=== PATIENT | female | born 1960 | race Caucasian/White ===

== ENCOUNTER 2018-07-30 17:57 | Observation (INO) | payer OTHER ==
[~2018-07-30] VITALS: Ht 167.6 cm; Wt 73.0 kg
[~2018-07-30 17:57] MED LIST: ARIP10 PO; ARIP30 PO; BISA10S PR; CARB200 PO; CIPR500 PO; CLIN300 PO; CVS DISPOSABLE399 ML PR; DEPAKOTE; DOCU100 PO; ENOX40I SC; ESCI10 PO; HYDPAM25 PO; HYDPAM50 PO; HYDR1TAB94 PO; IBUP800 PO; LEVSOD50 PO; LITH300C; LITH300C PO; LITH300ER PO; LORA.5 PO; LORA1 PO; MULVIT PO; Milk Of Ma400 MG/5 M PO; NICO14TP TOP; OLAN10 PO; OXYBSY; QUET200 PO; RISP4; RISP4 PO; RISPERIDONE; SENNA PLUS; Senexon8.6 MG PO; TEMA15 PO; THIO PO; TOPI100 PO; TRAZ100; TRAZ100 PO; TRAZ150T57 PO; TRAZEDONE; depakote
[2018-07-30] MEDS ORDERED: PRAZ2 PO (18:32)
[2018-07-30] MEDS ORDERED: FISH OIL 1,0001 EACH PO (18:33)
[2018-07-30 19:28] LABS: Source, Urine Voided
[2018-07-30 19:37] LABS: Appearance, Urine Clear (Clear); Bilirubin, Urine Neg (Neg); Blood, Urine Neg (Neg); Color, Urine Yellow (P-Yellow); Glucose Qualitative, Urine Neg (Neg); Ketones, Urine Neg (Neg); Leukocyte Esterase, Urine 1+ (Neg); Nitrite, Urine Neg (Neg); Protein, Urine Neg (Neg); Specific Gravity, Urine 1.005 (1.003-1.022); Urobilinogen, Urine NORM (Normal)
[2018-07-30 19:44] LABS: BASOPHILS ABSOLUTE AUTO 0.07 K/mm3 (0.00-0.23); BASOPHILS PERCENT AUTO 1 % (0-2); EOSINOPHILS ABSOLUTE AUTO 0.27 K/mm3 (0.00-0.68); EOSINOPHILS PERCENT AUTO 2 % (0-6); Hematocrit 47.7 % (33.0-51.0); Hemoglobin 16.3 g/dL (11.5-16.0); IMMATURE GRAN ABSOLUTE AUTO 0.04 K/mm3 (0.00-0.10); IMMATURE GRAN PERCENT AUTO 0 % (0-1); LYMPHOCYTES ABSOLUTE AUTO 6.63 K/mm3 (0.84-5.20); LYMPHOCYTES PERCENT AUTO 51 % (21-46); MONOCYTES ABSOLUTE AUTO 0.83 K/mm3 (0.16-1.47); MONOCYTES PERCENT AUTO 6 % (4-13); Mean Corpuscular HGB Conc 34.2 g/dL (31.5-36.5); Mean Corpuscular Volume 97 fL (80-100); NEUTROPHILS ABSOLUTE AUTO 5.27 K/mm3 (1.96-9.15); NEUTROPHILS PERCENT AUTO 40 % (41-73); RDW Coefficient Variation 12.8 % (11.7-14.2); RDW Standard Deviation 45.6 fL (35.1-46.3); Red Blood Cell Count 4.94 M/mm3 (3.80-5.20); White Blood Cell Count 13.11 K/mm3 (4.00-11.30)
[2018-07-30 19:51] LABS: Alanine Aminotransfer (ALT/SGP 44 U/L (12-78); Albumin, Blood 3.8 g/dL (3.4-5.0); Alk Phos 101 U/L (50-136); Anion Gap 9 mmol/L (6-16); Aspartate Aminotrans (AST/SGOT 20 U/L (12-37); Bilirubin, Total 0.3 mg/dL (0.1-1.0); Blood Urea Nitrogen 19 mg/dL (8-24); Bun/Creatinine Ratio 19.9 (12.0-20.0); CO2, Blood 18 mmol/L (21-32); Calcium, Blood 8.8 mg/dL (8.5-10.1); Chloride, Blood 111 mmol/L (98-108); Creatinine, Blood 0.96 mg/dL (0.40-1.00); Ethanol (Alcohol), Blood, Med <3 mg/dL; Glomerular Filtration Rate >60 (60-); Glucose, Blood 112 mg/dL (70-99); Potassium, Blood 4.1 mmol/L (3.5-5.5); Salicylate <1.7 mg/dL (2.8-20.0); Sodium, Blood 138 mmol/L (136-145); Total Protein, Blood 7.8 g/dL (6.4-8.2)
[2018-07-30 19:52] LABS: Mean Platelet Volume 10.3 fL (9.1-12.4); Platelet Count 184 K/mm3 (150-400)
[2018-07-30 19:57] LABS: Squamous Epithelial Cells Rare /hpf (Few)
[2018-07-30 19:58] LABS: Bacteria Rare /hpf; Red Blood Cells, Urine Not Seen /hpf (0-2); White Blood Cells, Urine 0-2 /hpf (0-5)
[2018-07-30 19:59] LABS: U Amphetamine Screen Not Detected; U Barbituate Screen Not Detected; U Benzodiazapine Screen Not Detected; U Buprenorphine Screen Not Detected; U Cannabinoids Screen Not Detected; U Cocaine Screen Not Detected; U Methadone Screen Not Detected; U Methamphetamine Screen Not Detected; U Opiates Screen Not Detected; U Oxycodone Screen Not Detected; U Phencyclidine Screen Not Detected; U Propoxyphene Screen Not Detected
[2018-07-30 19:59] LABS: Acetaminophen, Random <2.0 ug/mL (10.0-30.0)
[2018-07-30 20:09] LABS: Lithium 0.61 mmol/L (0.60-1.20)
== END 2018-08-01 08:16 ==
LOC: ER 17:57 → EOR 17:58
PROVIDERS: Physician Assistant
DX: R45.851 Suicidal ideations (principal); F31.4 Bipolar disorder, current episode depressed, severe, without psychotic features; F43.10 Post-traumatic stress disorder, unspecified; F20.9 Schizophrenia, unspecified; F17.200 Nicotine dependence, unspecified, uncomplicated; Z79.899 Other long term (current) drug therapy
CPT/HCPCS: 36415; 80053; 80178; 81001; 81025; 84443; 85025; 87086; 99285; G0378; G0480; Q3014

== ENCOUNTER 2018-10-26 23:35 | Emergency (ER) | payer OTHER ==
[~2018-10-26] VITALS: Ht 170.2 cm; Wt 77.1 kg
[~2018-10-26 23:35] MED LIST changes: +FISH OIL 1,0001 EACH PO; +PRAZ2 PO
[2018-10-27] MEDS ORDERED: BENZ2 PO (01:06)
== END 2018-10-27 01:58 | disposition home or self-care (01) ==
LOC: ER 23:35
DX: G25.81 Restless legs syndrome (principal); T43.595A Adverse effect of other antipsychotics and neuroleptics, initial encounter; Z88.0 Allergy status to penicillin; Z88.8 Allergy status to other drugs, medicaments and biological substances; Z88.5 Allergy status to narcotic agent; Z79.899 Other long term (current) drug therapy; F31.9 Bipolar disorder, unspecified; F20.9 Schizophrenia, unspecified; F17.200 Nicotine dependence, unspecified, uncomplicated
CPT/HCPCS: 96374; 99283-25; J0515

== ENCOUNTER 2018-11-03 19:07 | Emergency (ER) | payer OTHER ==
[~2018-11-03] VITALS: Ht 170.2 cm; Wt 77.1 kg
[~2018-11-03 19:07] MED LIST changes: +BENZ2 PO
== END 2018-11-03 19:17 | disposition home or self-care (01) ==
LOC: ER 19:07
DX: R21 Rash and other nonspecific skin eruption (principal); Z88.0 Allergy status to penicillin; Z88.8 Allergy status to other drugs, medicaments and biological substances; Z88.5 Allergy status to narcotic agent; Z79.899 Other long term (current) drug therapy; F32.9 Major depressive disorder, single episode, unspecified; F31.9 Bipolar disorder, unspecified; F20.9 Schizophrenia, unspecified; F17.200 Nicotine dependence, unspecified, uncomplicated
CPT/HCPCS: 99283

== ENCOUNTER 2019-05-10 20:40 | Emergency (ER) | payer OTHER ==
[~2019-05-10] VITALS: Ht 170.2 cm; Wt 68.0 kg
[2019-05-10 21:05] LABS: BASOPHILS ABSOLUTE AUTO 0.05 K/mm3 (0.00-0.23); BASOPHILS PERCENT AUTO 1 % (0-2); EOSINOPHILS ABSOLUTE AUTO 0.28 K/mm3 (0.00-0.68); EOSINOPHILS PERCENT AUTO 3 % (0-6); Hematocrit 39.4 % (33.0-51.0); Hemoglobin 13.4 g/dL (11.5-16.0); IMMATURE GRAN ABSOLUTE AUTO 0.02 K/mm3 (0.00-0.10); IMMATURE GRAN PERCENT AUTO 0 % (0-1); LYMPHOCYTES ABSOLUTE AUTO 5.69 K/mm3 (0.84-5.20); LYMPHOCYTES PERCENT AUTO 56 % (21-46); MONOCYTES ABSOLUTE AUTO 0.59 K/mm3 (0.16-1.47); MONOCYTES PERCENT AUTO 6 % (4-13); Mean Corpuscular Volume 100 fL (80-100); Mean Platelet Volume 8.8 fL (9.1-12.4); NEUTROPHILS ABSOLUTE AUTO 3.46 K/mm3 (1.96-9.15); NEUTROPHILS PERCENT AUTO 34 % (41-73); Platelet Count 197 K/mm3 (150-400); RDW Coefficient Variation 13.2 % (11.7-14.2); RDW Standard Deviation 48.8 fL (35.1-46.3); Red Blood Cell Count 3.94 M/mm3 (3.80-5.20); White Blood Cell Count 10.09 K/mm3 (4.00-11.30)
[2019-05-10 21:21] LABS: CPK Creatine Kinase 139 U/L (26-193); Troponin I <0.015 ng/mL (0.000-0.040)
[2019-05-10 21:22] LABS: Alanine Aminotransfer (ALT/SGP 37 U/L (12-78); Albumin, Blood 3.4 g/dL (3.4-5.0); Alk Phos 71 U/L (50-136); Anion Gap 8 mmol/L (6-16); Aspartate Aminotrans (AST/SGOT 29 U/L (12-37); Bilirubin, Total 0.5 mg/dL (0.1-1.0); Blood Urea Nitrogen 11 mg/dL (8-24); Bun/Creatinine Ratio 12.5 (12.0-20.0); CO2, Blood 23 mmol/L (21-32); Calcium, Blood 8.9 mg/dL (8.5-10.1); Chloride, Blood 112 mmol/L (98-108); Creatine Kinase MB 7.3 ng/mL (0.0-3.6); Creatine Kinase MB Index 5.3 (0.0-4.0); Creatinine, Blood 0.88 mg/dL (0.40-1.00); Globulin, Blood 3.4 g/dL (2.2-4.0); Glomerular Filtration Rate >60 (60-); Glucose, Blood 102 mg/dL (70-99); Potassium, Blood 3.8 mmol/L (3.5-5.5); Sodium, Blood 143 mmol/L (136-145); Total Protein, Blood 6.8 g/dL (6.4-8.2)
[2019-05-10 21:42] LABS: Lithium 0.84 mmol/L (0.60-1.20)
[2019-05-10] MEDS ORDERED: ALBU90OI INH (21:58)
== END 2019-05-10 22:12 | disposition home or self-care (01) ==
LOC: ER 20:40
PROVIDERS: Emergency Medicine
DX: R07.89 Other chest pain (principal); F31.9 Bipolar disorder, unspecified; F20.9 Schizophrenia, unspecified; F17.210 Nicotine dependence, cigarettes, uncomplicated; Z86.73 Personal history of transient ischemic attack (TIA), and cerebral infarction without residual deficits; Z88.0 Allergy status to penicillin; Z88.8 Allergy status to other drugs, medicaments and biological substances; Z88.5 Allergy status to narcotic agent; Z79.899 Other long term (current) drug therapy
CPT/HCPCS: 71046; 80053; 80178; 82550; 82553; 83690; 83880; 84484; 85025; 93005; 93010; 94640; 99285-25

== ENCOUNTER 2019-10-22 09:04 | Day surgery (SDC) | payer OTHER ==
[~2019-10-22] VITALS: Ht 170.2 cm; Wt 79.7 kg
[~2019-10-22 09:04] MED LIST changes: +ALBU90OI INH; +EUTHYROX88 MCG PO; +PRAZ1 PO; +PROP10 PO; +VENL150ER PO
== END 2019-10-22 11:44 | disposition home or self-care (01) ==
LOC: ORSCSDS 09:04
PROVIDERS: Internal Medicine Gastroenterology
PROC: 0DBE8ZX Excision of Large Intestine, Via Natural or Artificial Opening Endoscopic, Diagnostic (ICD-10-PCS; principal; 2019-10-22 10:15)
PROC: 0DBP8ZX Excision of Rectum, Via Natural or Artificial Opening Endoscopic, Diagnostic (ICD-10-PCS; principal; 2019-10-22 10:15)
PROC: 0DBM8ZX Excision of Descending Colon, Via Natural or Artificial Opening Endoscopic, Diagnostic (ICD-10-PCS; principal; 2019-10-22 10:15)
DX: R19.7 Diarrhea, unspecified (principal); D12.8 Benign neoplasm of rectum; D12.4 Benign neoplasm of descending colon; Z80.0 Family history of malignant neoplasm of digestive organs; K57.30 Diverticulosis of large intestine without perforation or abscess without bleeding; Z87.891 Personal history of nicotine dependence
CPT/HCPCS: 88305; J2704; J7120

== ENCOUNTER 2020-02-04 15:05 | Emergency (ER) | payer OTHER ==
[~2020-02-04] VITALS: Ht 167.6 cm; Wt 68.0 kg
[2020-02-04 16:11] LABS: BASOPHILS ABSOLUTE AUTO 0.03 K/mm3 (0.00-0.23); BASOPHILS PERCENT AUTO 0 % (0-2); EOSINOPHILS ABSOLUTE AUTO 0.21 K/mm3 (0.00-0.68); EOSINOPHILS PERCENT AUTO 2 % (0-6); IMMATURE GRAN ABSOLUTE AUTO 0.03 K/mm3 (0.00-0.10); IMMATURE GRAN PERCENT AUTO 0 % (0-1); LYMPHOCYTES ABSOLUTE AUTO 3.28 K/mm3 (0.84-5.20); LYMPHOCYTES PERCENT AUTO 31 % (21-46); MONOCYTES ABSOLUTE AUTO 0.56 K/mm3 (0.16-1.47); MONOCYTES PERCENT AUTO 5 % (4-13); Mean Corpuscular HGB 32.5 pg (26.0-34.0); Mean Corpuscular Volume 96 fL (80-100); Mean Platelet Volume 9.3 fL (9.1-12.4); NEUTROPHILS ABSOLUTE AUTO 6.48 K/mm3 (1.96-9.15); NEUTROPHILS PERCENT AUTO 61 % (41-73); Platelet Count 233 K/mm3 (150-400); RDW Coefficient Variation 12.9 % (11.7-14.2); RDW Standard Deviation 45.7 fL (35.1-46.3); Red Blood Cell Count 4.92 M/mm3 (3.80-5.20); White Blood Cell Count 10.59 K/mm3 (4.00-11.30)
[2020-02-04 16:30] LABS: Lithium 1.37 mmol/L (0.60-1.20)
[2020-02-04 16:44] LABS: Alanine Aminotransfer (ALT/SGP 29 U/L (12-78); Albumin, Blood 3.7 g/dL (3.4-5.0); Albumin/Globulin Ratio 0.9 (0.8-1.8); Alk Phos 89 U/L (50-136); Anion Gap 9 mmol/L (6-16); Aspartate Aminotrans (AST/SGOT 21 U/L (12-37); Bilirubin, Total 0.5 mg/dL (0.1-1.0); Blood Urea Nitrogen 8 mg/dL (8-24); Bun/Creatinine Ratio 9.4 (12.0-20.0); CO2, Blood 22 mmol/L (21-32); Calcium, Blood 9.7 mg/dL (8.5-10.1); Chloride, Blood 105 mmol/L (98-108); Creatinine, Blood 0.85 mg/dL (0.40-1.00); Ethanol (Alcohol), Blood, Med <3 mg/dL; Glomerular Filtration Rate >60 (60-); Glucose, Blood 106 mg/dL (70-99); Potassium, Blood 3.4 mmol/L (3.5-5.5); Salicylate 3.5 mg/dL (2.8-20.0); Sodium, Blood 136 mmol/L (136-145); Total Protein, Blood 7.7 g/dL (6.4-8.2)
[2020-02-04 16:46] LABS: Acetaminophen, Random <2.0 ug/mL (10.0-30.0)
[2020-02-04 16:53] LABS: Free Thyroxine 1.53 ng/dL (0.70-1.60)
[2020-02-04 19:19] LABS: Lithium 1.29 mmol/L (0.60-1.20)
== END 2020-02-04 20:32 | disposition home or self-care (01) ==
LOC: ER 15:05
PROVIDERS: Emergency Medicine; Nurse Practitioner
DX: F15.10 Other stimulant abuse, uncomplicated (principal); F12.10 Cannabis abuse, uncomplicated; F31.9 Bipolar disorder, unspecified; F20.9 Schizophrenia, unspecified; F17.210 Nicotine dependence, cigarettes, uncomplicated; Z88.0 Allergy status to penicillin; Z88.5 Allergy status to narcotic agent; Z88.8 Allergy status to other drugs, medicaments and biological substances; Z79.899 Other long term (current) drug therapy; Z86.19 Personal history of other infectious and parasitic diseases
CPT/HCPCS: 36415; 80053; 80178; 84439; 84443; 85025; 99283; G0480

== ENCOUNTER 2020-03-13 01:42 | Emergency (ER) | payer OTHER ==
[~2020-03-13] VITALS: Ht 172.7 cm; Wt 71.2 kg
== END 2020-03-13 03:46 | disposition home or self-care (01) ==
LOC: ER 01:42
DX: S80.02XA Contusion of left knee, initial encounter (principal); S50.311A Abrasion of right elbow, initial encounter; Z88.0 Allergy status to penicillin; Z88.5 Allergy status to narcotic agent; Z88.8 Allergy status to other drugs, medicaments and biological substances; Z91.018 Allergy to other foods; Z79.899 Other long term (current) drug therapy; F31.9 Bipolar disorder, unspecified; F20.9 Schizophrenia, unspecified; Z86.19 Personal history of other infectious and parasitic diseases; F17.210 Nicotine dependence, cigarettes, uncomplicated; W18.30XA Fall on same level, unspecified, initial encounter
CPT/HCPCS: 73562-LT; 99283-25

== ENCOUNTER 2020-05-04 09:24 | Observation (INO) | payer OTHER ==
[~2020-05-04] VITALS: Ht 170.2 cm; Wt 63.3 kg
[~2020-05-04 09:24] MED LIST changes: +DOCUZEN 8.6-501 EACH PO; -FISH OIL 1,0001 EACH PO; +FISH OIL 1,2001 EAC7 PO; -Senexon8.6 MG PO; -VENL150ER PO; +VENL75ER PO
[2020-05-04] MEDS ORDERED: Vistaril25 MG PO (10:33)
[2020-05-04] MEDS ORDERED: TRAZ50 PO (10:34)
[2020-05-04] MEDS ORDERED: OLAN10A MM (10:41)
[2020-05-04 11:11] LABS: Source, Urine Clean Catch
[2020-05-04 11:26] LABS: Appearance, Urine Clear (Clear); Blood, Urine Neg (Neg); Color, Urine Yellow (P-Yellow); Glucose Qualitative, Urine Neg (Neg); Ketones, Urine 4+ (Neg); Leukocyte Esterase, Urine Neg (Neg); Nitrite, Urine Neg (Neg); Protein, Urine 1+ (Neg); Urobilinogen, Urine 1+ (Normal)
[2020-05-04] MEDS ORDERED: Lithium Carbon300 M2 PO (11:39)
[2020-05-04] MEDS ORDERED: OLANZAPINE10 M2 PO (11:40)
[2020-05-04 11:43] LABS: BASOPHILS ABSOLUTE AUTO 0.03 K/mm3 (0.00-0.23); BASOPHILS PERCENT AUTO 0 % (0-2); EOSINOPHILS ABSOLUTE AUTO 0.02 K/mm3 (0.00-0.68); EOSINOPHILS PERCENT AUTO 0 % (0-6); Hematocrit 43.8 % (33.0-51.0); Hemoglobin 14.5 g/dL (11.5-16.0); IMMATURE GRAN ABSOLUTE AUTO 0.01 K/mm3 (0.00-0.10); IMMATURE GRAN PERCENT AUTO 0 % (0-1); LYMPHOCYTES ABSOLUTE AUTO 2.84 K/mm3 (0.84-5.20); LYMPHOCYTES PERCENT AUTO 35 % (21-46); MONOCYTES ABSOLUTE AUTO 0.39 K/mm3 (0.16-1.47); MONOCYTES PERCENT AUTO 5 % (4-13); Mean Corpuscular HGB 32.9 pg (26.0-34.0); Mean Corpuscular HGB Conc 33.1 g/dL (31.5-36.5); Mean Corpuscular Volume 99 fL (80-100); Mean Platelet Volume 9.2 fL (9.1-12.4); NEUTROPHILS ABSOLUTE AUTO 4.86 K/mm3 (1.96-9.15); NEUTROPHILS PERCENT AUTO 60 % (41-73); Platelet Count 210 K/mm3 (150-400); RDW Coefficient Variation 12.7 % (11.7-14.2); RDW Standard Deviation 47.1 fL (35.1-46.3); Red Blood Cell Count 4.41 M/mm3 (3.80-5.20); White Blood Cell Count 8.15 K/mm3 (4.00-11.30)
[2020-05-04 11:45] LABS: Bilirubin, Urine 1+ (Neg)
[2020-05-04 11:47] LABS: U Amphetamine Screen Not Detected; U Barbituate Screen Not Detected; U Benzodiazapine Screen Not Detected; U Buprenorphine Screen Not Detected; U Cannabinoids Screen DETECTED; U Cocaine Screen Not Detected; U Methadone Screen Not Detected; U Methamphetamine Screen Not Detected; U Opiates Screen Not Detected; U Oxycodone Screen Not Detected; U Phencyclidine Screen Not Detected; U Propoxyphene Screen Not Detected
[2020-05-04 12:04] LABS: Alanine Aminotransfer (ALT/SGP 45 U/L (12-78); Albumin, Blood 4.2 g/dL (3.4-5.0); Albumin/Globulin Ratio 1.3 (0.8-1.8); Alk Phos 70 U/L (50-136); Anion Gap 10 mmol/L (6-16); Aspartate Aminotrans (AST/SGOT 29 U/L (12-37); Bilirubin, Total 0.5 mg/dL (0.1-1.0); Blood Urea Nitrogen 25 mg/dL (8-24); Bun/Creatinine Ratio 23.1 (12.0-20.0); CO2, Blood 20 mmol/L (21-32); Calcium, Blood 9.8 mg/dL (8.5-10.1); Chloride, Blood 114 mmol/L (98-108); Creatinine, Blood 1.08 mg/dL (0.40-1.00); Ethanol (Alcohol), Blood, Med 4 mg/dL; Globulin, Blood 3.3 g/dL (2.2-4.0); Glomerular Filtration Rate 55 (60-); Glucose, Blood 88 mg/dL (70-99); Potassium, Blood 4.3 mmol/L (3.5-5.5); Salicylate 3.9 mg/dL (2.8-20.0); Sodium, Blood 144 mmol/L (136-145); Total Protein, Blood 7.5 g/dL (6.4-8.2)
[2020-05-04 12:06] LABS: Acetaminophen, Random <2.0 ug/mL (10.0-30.0)
[2020-05-04 17:27] LABS: Lithium 0.27 mmol/L (0.60-1.20)
[2020-05-05 16:21] LABS: BASOPHILS ABSOLUTE AUTO 0.03 K/mm3 (0.00-0.23); BASOPHILS PERCENT AUTO 0 % (0-2); EOSINOPHILS ABSOLUTE AUTO 0.17 K/mm3 (0.00-0.68); EOSINOPHILS PERCENT AUTO 2 % (0-6); Hematocrit 44.6 % (33.0-51.0); Hemoglobin 14.9 g/dL (11.5-16.0); IMMATURE GRAN ABSOLUTE AUTO 0.03 K/mm3 (0.00-0.10); IMMATURE GRAN PERCENT AUTO 0 % (0-1); LYMPHOCYTES ABSOLUTE AUTO 4.09 K/mm3 (0.84-5.20); LYMPHOCYTES PERCENT AUTO 38 % (21-46); MONOCYTES ABSOLUTE AUTO 0.68 K/mm3 (0.16-1.47); MONOCYTES PERCENT AUTO 6 % (4-13); Mean Corpuscular HGB 32.8 pg (26.0-34.0); Mean Corpuscular HGB Conc 33.4 g/dL (31.5-36.5); Mean Corpuscular Volume 98 fL (80-100); Mean Platelet Volume 9.2 fL (9.1-12.4); NEUTROPHILS ABSOLUTE AUTO 5.68 K/mm3 (1.96-9.15); NEUTROPHILS PERCENT AUTO 53 % (41-73); Platelet Count 187 K/mm3 (150-400); RDW Coefficient Variation 12.5 % (11.7-14.2); RDW Standard Deviation 45.1 fL (35.1-46.3); Red Blood Cell Count 4.54 M/mm3 (3.80-5.20); White Blood Cell Count 10.68 K/mm3 (4.00-11.30)
[2020-05-05 16:39] LABS: Alanine Aminotransfer (ALT/SGP 45 U/L (12-78); Albumin, Blood 3.9 g/dL (3.4-5.0); Albumin/Globulin Ratio 1.2 (0.8-1.8); Alk Phos 71 U/L (50-136); Anion Gap 6 mmol/L (6-16); Aspartate Aminotrans (AST/SGOT 33 U/L (12-37); Bilirubin, Total 0.4 mg/dL (0.1-1.0); Blood Urea Nitrogen 24 mg/dL (8-24); Bun/Creatinine Ratio 24.1 (12.0-20.0); CO2, Blood 25 mmol/L (21-32); Calcium, Blood 9.5 mg/dL (8.5-10.1); Chloride, Blood 110 mmol/L (98-108); Ethanol (Alcohol), Blood, Med <3 mg/dL; Globulin, Blood 3.2 g/dL (2.2-4.0); Glomerular Filtration Rate >60 (60-); Glucose, Blood 103 mg/dL (70-99); Potassium, Blood 3.9 mmol/L (3.5-5.5); Sodium, Blood 141 mmol/L (136-145); Total Protein, Blood 7.1 g/dL (6.4-8.2)
--- NOTE | 2020-05-06 00:05 | NUR ---
COLUMBIA SUICIDE ASSESSMENT: UNABLE TO COMPLE DUE TO PATIENT'S CONFUSION AND INABILITY TO ANSWER QUESTIONS.
--- NOTE | 2020-05-06 00:05 | NUR ---
RECEIVED PATIENT FROM CRISIS HOLD UNIT VIA WHEELCHAIR WITH SECURITY AND RN. PATIENT LIFTED TO BED BY SECURITY. PATIENT ORIENTED ONLY TO NAME; SPEECH GARBLED AND UNINTELLIGIBLE. PATIENT APPEARS CALM, FOLLOWS DIRECTIONS. VITALS TAKEN. BED ALARM ON; ROOM CAMERA ON.
--- NOTE | 2020-05-06 02:00 | NUR ---
PATIENT SLEEPING. BED ALARM ON. PATIENT ON VIDEO MONITOR.
--- NOTE | 2020-05-06 04:00 | NUR ---
PATIENT AWAKE, FIDGETING IN BED. PATIENT ASKED IF SHE NEEDED TO VOID, PATIENT NODDED YES. PATIENT PLACED ON BEDPAN; UNABLE TO VOID. PATIENT AWAKE; UNABLE TO UNDERSTAND GARBLED WORDS. PATIENT FED YOGURT; ATE FULL CONTAINER. ATTEMPTED TO REORIENT PATIENT. PATIENT FOLLOWS SIMPLE DIRECTIONS, BUT UNABLE TO ASSESS ORIENTATION DUE TO GARBLED AND UNINTELLIGIBLE SPEECH. BED IN LOW POSITION, WHEELS LOCKED; BED ALARM ON; PATIENT ON VIDEO MONITORING.
--- NOTE | 2020-05-06 06:25 | NUR ---
SHIFT SUMMARY: PATIENT SLEPT OFF AND ON SINCE ADMISSION. PATIENT'S SPEECH THIS AM A LITTLE MORE CLEAR, BUT PATIENT IS DISORIENTED AND WORDS ARE NON-SENSICAL. PATIENT TRIED TO CLIMB OUT OF BED ONCE, BUT WAS EASILY REDIRECTED TO GET BACK IN BED. PATIENT REMAINS ON ETOH HOLD WITH VIDEO MONITORING. BED LOW WITH SIDERAILS UP AND BED EXIT ALARM ON. PATIENT ABLE TO FEED HERSELF TWO YOGURTS THIS AM.
--- NOTE | 2020-05-06 07:44 | NUR ---
Assumed care of pt at 0700. Bedside report received from Tiffany NOLEN. Pt alert. Knows own name. Does not know current location. Pt highly interactive with staff. Speaking in friendly tone, changing between subjects quickly. Pt inquires "am I getting counseling today?" This RN notified pt that psych doctor will be in to see her later. Pt mentions Dr Brand's name. Pt laying in bed, follows commands and answers questions. Pt on room air. No cardiac monitoring. No IV access. Pt is medical floor status, no telemetry ordered. Bed alarm on.
[2020-05-06 08:46] LABS: Lithium 0.84 mmol/L (0.60-1.20)
--- NOTE | 2020-05-06 11:54 | NUR ---
Pt independent in room. Steady on feet. Dr Bhardwaj and Dr Natarajan have been in to see pt. Drug and alcohol hold , pt has been placed on 2 MD hold. Discussed that pt is medical status. manager emergency department notified that pt is medically stable.
--- NOTE | 2020-05-06 16:22 | NUR ---
Dr Barberuff in to see pt. States he is increasing pt's bedtime zyprexa. Goal for inpatient rehab when pt is medically stable.
--- NOTE | 2020-05-06 17:32 | NUR ---
No acute changes since initial assessment. Pt has been independent in room, tolerating activity well. Pt oriented to self, confused, has flight of ideas as well as auditory and visual hallucinations. Pt remains cooperative with care. Pt on room air. Not on ekg monitor tech. Remains on video monitoring. Will continue to closely monitor until care handoff and bedside report with oncoming RN.
--- NOTE | 2020-05-06 19:00 | NUR ---
ASSUMED CARE OF PATIENT. PATIENT ORIENTED TO PERSON, AND TIME; STATES SHE IS IN [place]. PATIENT HAVING AUDITORY HALLUCINATIONS; STATES "THE MAN NEXT DOOR IS YELLING THAT HE IS GOING TO KILL ME!" PATIENT COOPERATIVE AND DIRECTABLE. PATIENT REMAINS ON 2 MD HOLD ON VIDEO CAMERA.
--- NOTE | 2020-05-07 04:00 | NUR ---
PATIENT AWAKE, TALKING TO HERSELF. WHEN THIS RN ENTERED THE ROOM, PATIENT STATES "I'M NOT TAKING ANY OF YOUR MEDS." PATIENT ORIENTED TO PERSON, AND [place]. PATIENT STATES "I HAVE THE COVID BECAUSE THERE ARE SNAKES COMING OUT OF MY BUTT." PATIENT HAVING AUDITORY HALLUCINATIONS, SAYING "THE MAN NEXT DOOR SAYS HE IS GOING TO HURT ME." ATTEMPTED TO REORIENT PATIENT; PATIENT BEGAN TALKING TO HERSELF. PATIENT ALLOWED VITALS TO BE TAKEN AND THEN ROLLED OVER IN BED.
--- NOTE | 2020-05-07 06:04 | NUR ---
SHIFT SUMMARY: PATIENT ASLEEP FROM AROUND [id number]. PATIENT ORIENTED TO PERSON, AND STATE OF [place]. PATIENT YELLING AT TIMES, HALLUCINATING. PATIENT REDIRECTABLE AND IS QUIET FOR SHORT PERIODS OF TIME. PATIENT ATE A YOGURT THIS MORNING; ABLE TO FEED HERSELF. PATIENT APPEARS SOMEWHAT ANXIOUS THIS AM; DECLINED PRN MEDS. THAT WERE OFFERED. PATIENT CONTINUES ON 2 MD HOLD WITH VIDEO MONITORING. AWAITING PSYCH. DISPO.
--- NOTE | 2020-05-07 12:00 | NUR ---
Pt became agitated and attempted to leave facility. Pt reminded that she is on a 2 MD hold and the police will be called if she departs from facility. Pt verbalized understanding and continued to state desire to leave. Safely escorted to entrance by cam RN and Farzad RN. Upon stepping outside, pt stated it was hot and she wanted to go back inside. Pt escorted back to room. Provided with lunch tray. Pt happy and willing to stay.
--- NOTE | 2020-05-07 12:49 | NUR ---
Assumed care of pt at 0700. Report received from Tiffany NOLEN. Pt alert, oriented to self only. Independent in room. Performs ADLs independently. Report auditory and visual hallucination. Reports ongoing suicidality. Pt on room air. No heart monitor as pt is medical floor status without cardiac monitoring ordered. Bed in lowest position. Call light in reach. Pt denies need at this time.
--- NOTE | 2020-05-07 14:50 | NUR ---
Pt to shower, tolerated activity well. Bathed self independently with supervision and verbal cues from this RN.
--- NOTE | 2020-05-07 18:13 | NUR ---
Plans for pt to transfer to [facility], with secure transport arriving at 2200. Per facility, report not to be called at this time, but instead on patient departure from facility. Since shower, pt has been fatigued and been in bed. Will continue to closely monitor until care handoff and bedside report with oncoming RN.
--- NOTE | 2020-05-07 21:48 | NUR ---
ASSUMED CARE RECEIVED REPORT FROM TAMANNA BRUNNER. PT IS IN ROOM ALL OVER THE PLACE. OFTEN WILL BE PACING AROUND, THEN STARING CLOSELY AT THINGS NOT MOVING, TALKING TO SELF AND OBJECTS, SITTING DOWN IN CORNER, STUFFYING TOILET PAPER IN TOILET, CLOSING BLINDS, ETC... HER MOOD FLUCTUATES, SOMETIMES SHE IS SLIGHTLY AGITATED AND OTHER TIMES SHE IS VERY PLEASANT. EVEN WHEN SHE GETS A TAD AGITATED, SHE IS VERY REDIRECTABLE. WHEN SHE TRIES TO LEAVE, YOU CAN ASK HER TO GO BACK IN THE ROOM AND SHE DOES SO WITHOUT FIGHTING. HER ROOM HAS BEEN STRIPPED DOWN. I WAS ABLE TO GIVE HER MEDS TO HER AND SHE TOOK THEM WITHOUT ANY TROUBLE. SECURE TRANSPORT SHOULD BE HERE AT 2200 TO PICK HER UP AND TAKE HER TO [facility].
[2020-05-07] MEDS ORDERED: SENN187 PO (22:00)
--- NOTE | 2020-05-07 22:24 | NUR ---
SECURE TRANSPORT AMALIA MCCLURE IS HERE AT 2220 TO [facility] [employer] PT AND TAKE HER TO [facility] [place], [place]. I GAVE HIM THE APPROPRIATE PAPERWORK. PT IS CURRENTLY SLEEPY AND LAYING IN BED.
--- NOTE | 2020-05-07 22:28 | NUR ---
I ATTEMPTED TO CALL NORA'S SIGNIFICANT OTHER TO INFORM HIM OF HER TRANSFER, BUT HE DID NOT DIRECTOR FINANCIAL SERVICES THE PHONE CALL, AND I COULDN'T LEAVE HIM A MESSAGE BECAUSE HIS MAIL BOX WAS FULL.
== END 2020-05-07 22:30 ==
LOC: ER 09:24 → ICUW 09:26 → EOR 11:22 → ERHOLD 11:22 → ER 11:22 → ERHOLD 11:23 → EOR 11:23 → ICUW 05-05 11:23 → ER 05-05 11:23 → EOR 05-05 11:23 → ICUW 05-05 23:52 → EOR 05-05 23:52 → ICUW 05-06 00:02
PROVIDERS: Emergency Medicine; Psychiatry & Neurology Psychiatry; ADMIT Emergency Medicine
DX: F31.5 Bipolar disorder, current episode depressed, severe, with psychotic features (principal); G40.909 Epilepsy, unspecified, not intractable, without status epilepticus; I69.354 Hemiplegia and hemiparesis following cerebral infarction affecting left non-dominant side; F17.210 Nicotine dependence, cigarettes, uncomplicated; Z11.59 Encounter for screening for other viral diseases; Z88.5 Allergy status to narcotic agent; Z88.0 Allergy status to penicillin; Z88.8 Allergy status to other drugs, medicaments and biological substances; Z91.018 Allergy to other foods; Z79.899 Other long term (current) drug therapy
CPT/HCPCS: 36415; 70450; 71046; 80053; 80178; 81025; 84443; 85025; 93005; 93010; 96372; 99285-25; A9270-GY; G0378; G0480; J1650; Q0177; Q3014; U0002

== ENCOUNTER 2020-11-22 16:09 | Inpatient (IN) | payer OTHER ==
[~2020-11-22] VITALS: Ht 167.6 cm; Wt 65.8 kg
[~2020-11-22 16:09] MED LIST changes: +Lithium Carbon300 M2 PO; +OLAN10A MM; +SENN187 PO; +TRAZ50 PO
[2020-11-22 16:33] LABS: BASOPHILS ABSOLUTE AUTO 0.04 K/mm3 (0.00-0.23); BASOPHILS PERCENT AUTO 0 % (0-2); EOSINOPHILS PERCENT AUTO 0 % (0-6); Hemoglobin 19.7 g/dL (11.5-16.0); IMMATURE GRAN ABSOLUTE AUTO 0.06 K/mm3 (0.00-0.10); IMMATURE GRAN PERCENT AUTO 0 % (0-1); LYMPHOCYTES ABSOLUTE AUTO 4.27 K/mm3 (0.84-5.20); LYMPHOCYTES PERCENT AUTO 25 % (21-46); MONOCYTES ABSOLUTE AUTO 1.34 K/mm3 (0.16-1.47); MONOCYTES PERCENT AUTO 8 % (4-13); Mean Corpuscular HGB 33.1 pg (26.0-34.0); Mean Corpuscular HGB Conc 33.8 g/dL (31.5-36.5); Mean Corpuscular Volume 98 fL (80-100); Mean Platelet Volume 9.4 fL (9.1-12.4); NEUTROPHILS ABSOLUTE AUTO 11.26 K/mm3 (1.96-9.15); NEUTROPHILS PERCENT AUTO 66 % (41-73); Platelet Count 279 K/mm3 (150-400); RDW Standard Deviation 46.6 fL (35.1-46.3); Red Blood Cell Count 5.96 M/mm3 (3.80-5.20); White Blood Cell Count 16.97 K/mm3 (4.00-11.30)
[2020-11-22 16:35] LABS: Hematocrit 58.2 % (33.0-51.0)
[2020-11-22 17:38] LABS: Source, Urine Clean Catch
[2020-11-22 17:41] LABS: Appearance, Urine Hazy (Clear); Bilirubin, Urine Neg (Neg); Blood, Urine 5+ (Neg); Color, Urine Yellow (P-Yellow); Glucose Qualitative, Urine Neg (Neg); Ketones, Urine 1+ (Neg); Leukocyte Esterase, Urine 1+ (Neg); Nitrite, Urine Neg (Neg); Protein, Urine 4+ (Neg); Urobilinogen, Urine 1+ (Normal)
[2020-11-22 17:53] LABS: Amorphous Mod (0-Heavy); Bacteria Few /hpf; Squamous Epithelial Cells Few /hpf (Few)
[2020-11-22 17:56] LABS: Ethanol (Alcohol), Blood, Med <3 mg/dL
[2020-11-22 17:59] LABS: Alanine Aminotransfer (ALT/SGP 61 U/L (12-78); Albumin, Blood 4.2 g/dL (3.4-5.0); Alk Phos 115 U/L (50-136); Anion Gap 10 mmol/L (6-16); Aspartate Aminotrans (AST/SGOT 59 U/L (12-37); Bilirubin, Total 0.8 mg/dL (0.1-1.0); Blood Urea Nitrogen 79 mg/dL (8-24); Bun/Creatinine Ratio 43.9 (12.0-20.0); CO2, Blood 19 mmol/L (21-32); Calcium, Blood 9.6 mg/dL (8.5-10.1); Chloride, Blood 132 mmol/L (98-108); Globulin, Blood 4.1 g/dL (2.2-4.0); Glomerular Filtration Rate 31 (60-); Glucose, Blood 135 mg/dL (70-99); Potassium, Blood 3.9 mmol/L (3.5-5.5); Sodium, Blood 161 mmol/L (136-145); Total Protein, Blood 8.3 g/dL (6.4-8.2)
[2020-11-22 18:05] LABS: U Amphetamine Screen Not Detected; U Barbituate Screen Not Detected; U Benzodiazapine Screen Not Detected; U Buprenorphine Screen Not Detected; U Cannabinoids Screen Not Detected; U Cocaine Screen Not Detected; U Methadone Screen Not Detected; U Methamphetamine Screen Not Detected; U Opiates Screen Not Detected; U Oxycodone Screen Not Detected; U Phencyclidine Screen Not Detected; U Propoxyphene Screen Not Detected
[2020-11-22 22:07] LABS: Bun/Creatinine Ratio 47.8 (12.0-20.0); Calcium, Blood 9.7 mg/dL (8.5-10.1); Creatinine, Blood 1.61 mg/dL (0.40-1.00); Free Thyroxine 1.44 ng/dL (0.70-1.60); Potassium, Blood 3.8 mmol/L (3.5-5.5)
[2020-11-22 22:10] LABS: Thyroid Stimulating Hormone 1.07 uIU/mL (0.360-4.800)
--- NOTE | 2020-11-22 22:12 | NUR ---
REPORT RECIEVED FROM KRYSTEN MCKNIGHT RN, AND AWAITING PT T/F TO ROOM 347.
[2020-11-22] MEDS ORDERED: OLAN10 PO (22:40)
[2020-11-22] MEDS ORDERED: GABAPENTIN600 MG PO (22:42)
[2020-11-22] MEDS ORDERED: BUSP5 PO (22:42)
--- NOTE | 2020-11-22 22:45 | NUR ---
PT T/F VIA GURNEY TO ROOM 347 AT 2230. SHE HAS A PLEASANT DEMEANOR AND ANSWERS WHEN SPOKEN TO BUT IS VERY CONFUSED AND COULDN'T COME UP W/HER NAME OR ANY OTHER ORIENTATION ANSWERS. SHE REPLIES TO YES/NO Q'S BUT HER RESPONSES SEEM UNRELIABLE SHE TENDS TO BE AGREEABLE TO WHATEVER YOU SAY. PT OFTEN REPEATS WHAT IS SAID TO HER RATHER THAN ANSWERING OR SHE'LL RESPOND ENTIRELY NONSENSICALLY. SHE WAS ABLE TO CONVEY THAT SHE USES A CANE, HAS GLASSES AT HOME AND WEARS DENTURES. PT DENIED COMPLAINTS UPON ARRIVAL TO FLOOR. WHEN ASKED ABOUT RESTLESSNESS SHE SAID IT WAS "BECAUSE SHE DIDN'T HARIS HER PEPSI TODAY". SHE SUDDENLY BECAME TEARFUL AND STATED "HER SISTER TURNED HER IN" WHEN STAFF EXPLAINED THAT SHE WAS IN HOSPITAL. REORIENTATION AND REASSURANCE WAS PROVIDED AND PT CALMED. BED ALARM ARMED FOF FALL RISK, CONFUSION AND POSSIBLE IMPULSIVITY. SHE HAD SHUFFLED GAIT WHEN TRANSFERRING FROM [facility] TO BED BUT STRENGTH SEEMS EQUAL BILATERALLY AND NO DEFICITS WERE OBSERVED, GENERAL WEAKNESS NOTED. IVF INFUSING FROM ER AND PT REFUSED FLU VAC. WILL MEDICATE PRN IF HTN PERSISTS.
[2020-11-22 23:24] LABS: Lithium <0.20 mmol/L (0.60-1.20)
[2020-11-23 03:08] LABS: BASOPHILS ABSOLUTE AUTO 0.05 K/mm3 (0.00-0.23); BASOPHILS PERCENT AUTO 0 % (0-2); EOSINOPHILS PERCENT AUTO 0 % (0-6); Hemoglobin 19.1 g/dL (11.5-16.0); IMMATURE GRAN ABSOLUTE AUTO 0.07 K/mm3 (0.00-0.10); IMMATURE GRAN PERCENT AUTO 0 % (0-1); LYMPHOCYTES ABSOLUTE AUTO 5.09 K/mm3 (0.84-5.20); LYMPHOCYTES PERCENT AUTO 28 % (21-46); MONOCYTES PERCENT AUTO 8 % (4-13); Mean Corpuscular HGB 32.5 pg (26.0-34.0); Mean Corpuscular HGB Conc 33.3 g/dL (31.5-36.5); Mean Corpuscular Volume 98 fL (80-100); Mean Platelet Volume 9.6 fL (9.1-12.4); NEUTROPHILS ABSOLUTE AUTO 11.88 K/mm3 (1.96-9.15); NEUTROPHILS PERCENT AUTO 64 % (41-73); Platelet Count 267 K/mm3 (150-400); RDW Coefficient Variation 13.1 % (11.7-14.2); RDW Standard Deviation 47.1 fL (35.1-46.3); Red Blood Cell Count 5.87 M/mm3 (3.80-5.20); White Blood Cell Count 18.49 K/mm3 (4.00-11.30)
[2020-11-23 03:10] LABS: Hematocrit 57.3 % (33.0-51.0)
--- NOTE | 2020-11-23 03:15 | NUR ---
BP IMPROVED AFTER RECIEVING PRN HYDRALAZINE, NOW 146/98. SHE CONT'S REALLY RESTLESS THOUGH W/TACHY HR AND C/O FEELING "VERY NAUSEOUS" THIS AM. PRN ZOFRAN TO BE GIVEN.
[2020-11-23 03:32] LABS: Albumin, Blood 3.9 g/dL (3.4-5.0); Bilirubin, Total 0.7 mg/dL (0.1-1.0); Calcium, Blood 9.3 mg/dL (8.5-10.1); Creatinine, Blood 1.48 mg/dL (0.40-1.00); Potassium, Blood 3.7 mmol/L (3.5-5.5); Total Protein, Blood 7.9 g/dL (6.4-8.2)
--- NOTE | 2020-11-23 04:11 | NUR ---
PT APPEARS TO BE MORE SETTLED AND SLEEPING NOW AFTER RECIEVING ZOFRAN PRN.
--- NOTE | 2020-11-23 04:28 | NUR ---
ALERTED OF CRITICAL SODIUM TRENDING UPWARD, NOW 162. PT HAS BEEN RECIEVING 1/2 NS AT 125 ML/HR W/2ND OF 2L INFUSING AT THIS TIME. HE CHANGED IVF TO D5 AT 100 ML/HR X1L NOW.
--- NOTE | 2020-11-23 04:32 | NUR ---
BLADDER SCANNED AGAIN FOR 687 MLS. SHE WAS ASSISTED TO TOILET AND VOIDED APPROX 250 MLS IN THE HAT BUT MAJORITY WENT IN TOILET UNMEASURED. PVR WAS 54 MLS W/ AWARE AND NO NEW ORDERS RECIEVED. URINE WAS CHRSITINE, CLOUDY AND HAD A FOUL ODOR.
--- NOTE | 2020-11-23 04:58 | NUR ---
PT REPORTS FEELING "BETTER NOW" AFTER NAUSEA IMPROVED AND HAVING VOIDED. SHE CONT'S TO SAY SOME VERY BIZARRE NONSENSICAL THINGS BUT SEEMS TO BE SLIGHTLY MORE ORIENTED THAN UPON INITIAL ARRIVAL TO FLOOR. WARM BLANKET PROVIDED AND D5 COMMENCED AT 100 ML/HR AT THIS TIME.
--- NOTE | 2020-11-23 05:37 | NUR ---
SUMMARY: PT BEGAN SHIFT VERY CONFUSED AND COULDN'T ANSWER ANY ORIENTATION Q'S. SHE WAS RESTLESS, FIGITY AND SEEMED TO HAVE DIFFICULTY CONVEYING NEEDS. SHE ANSWERED Q'S MOSTLY NONSENSICALLY BUT SEEMED TO HAVE SOME AWARENESS OF AMS WHICH SEEMED DISTRESSING FOR HER. STAFF UNSURE OF PT'S BASELINE MENTATION BUT ER DOCUMENTATION REFERENCED INCREASED CONFUSION ACCORDING TO A HOME HEALTH RN. SHE EVENTUALLY DENIED PAIN BUT ADMITTED TO NAUSEA. ZOFRAN RECIEVED AND PT REPORTED RELIEF. HER KNEES, R.THIGH AND ELBOW ARE RED AND BRUISED APPEARING AND SHE HAS A DIFFUSE RED RASH ACROSS RIBS BENEATH BREASTS. PT WAS UNABLE TO OFFER ANY EXPLANATION. SEE PHOTOS FOR DETAILS. SHE INITIALLY HAD BLADDER SCANS >400-600+ MLS W/INABILITY TO VOID BUT SHE WAS CONTINENT TO TOILET THIS AM W/A PVR OF ONLY 54 MLS. PT ADMITTED TO FEELING MUCH BETTER AFTER NAUSEA RESOLVED AND VOIDING SO SHE CALMED AND WAS ABLE TO GET SOME REST. HER MENTATION HAS BEGUN TO CLEAR T/O THE NOCTE WELL BUT SHE STILL MAKES SOME VERY BIZARRE AND NONSENSICAL STATEMENTS AT TIMES, SEE PREVIOUS NOTES FOR DETAILS. SODIUM WAS CRITICAL AND TRENDING UPWARD THIS AM SO IVF WERE CHANGED TO D5 AT 100 ML/HR X1L AND PT WAS MADE A REGULAR DIET. BP WAS INITIALLY ELEVATED BUT HYDRALAZINE PRN WAS EFFECTIVE AND IS NOW 146/98. PT NSR AT 80'S BPM PER TELEMETRY. CAMERA MONITORING IN PLACE AND BED ALARM ON FOR FALL RISK, IMPULSIVITY AND AMS. NO ACUTE CHANGES, VSS/AFEBRILE. WCTM AND REPORT TO DAY RN.
[2020-11-23 09:24] LABS: Bun/Creatinine Ratio 51.6 (12.0-20.0); Calcium, Blood 9.7 mg/dL (8.5-10.1); Creatinine, Blood 1.28 mg/dL (0.40-1.00)
[2020-11-23 15:12] LABS: Bun/Creatinine Ratio 48.9 (12.0-20.0); Calcium, Blood 9.4 mg/dL (8.5-10.1); Creatinine, Blood 1.35 mg/dL (0.40-1.00); Potassium, Blood 4.3 mmol/L (3.5-5.5)
--- NOTE | 2020-11-23 17:33 | NUR ---
SHIFT SUMMARY PT REMAINS CONFUSED AND DISORIENTED. PT DOES NOT KNOW HER NAME OR . ABLE TO FEED HERSELF SOME OF BREAKFAST, BUT NOT REALLY SURE WHAT TO DO WITH WHAT WAS IN FRONT OF HER. FREQUENT REMINDERS NEEDED. CONVERSATION STILL DOES NOT MAKE ANY SENSE. PT'S MENTAL HEALTH PLANT DIRECTOR FROM [facility] CALLED TO CHK ON PT. POLICY ADVISER REPORTED THAT HERSELF AND A CO-WORKER FOUND THE PT AT HER APPT SOB AND NOT LOOKING WELL. PT HAD NOT BEEN TAKING HER MEDICATIONS AND HAD BED USING METH. PER POLICY ADVISER, PT HAD LET HER EX-BOYFRIEND IN HER APPT, EVEN THOUGH THERE WAS A RETRAINING ORDER AGAINST HIM. EX-BOYFRIEND BROUGHT THE METH. PER MENTAL HEALTH POLICY ADVISER, THEY SEE THEIR CLIENTS 4 OUT OF 5 DAYS A WEEK. PER PLANT DIRECTOR, PT DID THIS ONCE BEFORE AND ENDED UP WORSE, ABOUT 5-6 MONTHS AGO. PT STARTED USING METH AND NOT TAKING HER MEDS. PT SENT TO [facility] FOR TREATMENT AND THEN TO A FOSTER HOME FOR 2 MONTHS BEFORE MOVING INTO CURRENT APPARTMENT. PLANT DIRECTOR REPORTED THAT SHE FOUND METH COVERED FOIL AND SPOON IN APPARTMENT WHEN CHKING ON PT. POLICY ADVISER STATED THAT PT'S SISTER LIVES IN [place]. THE CONTACT NAME ON THE CHART "ALPHA" IS PT'S BEST FRIEND. OUR PHILOSOPHY LECTURER, LAST TOOK INFORMATION AND MENTAL HEALTH CRISIS # [phone] FOR THE "ACT" TEAM. PT IS ONE OF THE CLIENTS THAT THE "ACT" TEAM OVERSEES. PT ABLE TO TAKE PO MEDS THIS AM IN [place] WITH INSTRUCTIONS. PT LATER BECAME SLEEPY AND DID NOT WAKE UP ENOUGH TO BE ABLE TO EAT LUNCH. PT WOKE LATER THIS AFTERNOON AND IS NOW EATING DINNER. PT IS VERY SLOPPY WITH EATING, ABLE TO FEED HERSELF SOMEWHAT. SPEECH REMAINS NONSENSE. SR ON TELE IN 70'S - 90'S WITH PCU MX CALLING TWICE TO REPORT PT'S HR INCREASED TO 120. CRITICAL NA+ LEVEL CALLED THIS AM; 162. DR CAMARA NOTIFIED. NO NEW ORDERS. PT NOW SL; IVF'S COMPLETE. SBA TO BTHRM WITH MEDICAL PAYMENT POSTER TODAY. HX OF METH, ETOH, HEP C+, BIPOLAR, SCHZOPHRENIA, AND PANCREATITIS. PT ON CAMERA WITH BED ALARM ON. CALL LT IN REACH.
[2020-11-23 21:34] LABS: Bun/Creatinine Ratio 44.4 (12.0-20.0); Calcium, Blood 9.4 mg/dL (8.5-10.1); Creatinine, Blood 1.53 mg/dL (0.40-1.00); Potassium, Blood 4.1 mmol/L (3.5-5.5)
--- NOTE | 2020-11-24 06:17 | NUR ---
INSTRUCTION ASSISTANT PRINCIPAL SUMMARY PT A&O TO SELF. PT CONT TO BE PLEASANTLY CONFUSED, EASILY REDIRECTABLE. NO C/O PAIN OR ANY DISCOMFORT. NO C/O CP, SOB OR N&V. PT RETAINING URINE PER BLADDER SCAN, STRAIGHT CATH ORDERED, PT CALM AND RESTED IN BED T/O SHIFT. BED AT LOWEST POSITION, CALL LIGHT WITHIN REACH.
--- NOTE | 2020-11-24 16:05 | NUR ---
PATIENT ALERT AND ORIENTED TO SELF AND PLACE. PATIENT AWAKE AND OUT OF BED FOR BREAKFAST AND LUNCH. VERY CONFUSED BUT PLEASANT AND COOPERATIVE WITH CARE. PO MEDS TAKEN WHOLE WITH APPLESAUCE WITHOUT TROUBLE. BP SLIGHTLY ELEVATED BUT OTHERWISE VITALS STABLE. SODIUM REMAINS HIGHLY ELEVATED AT 160; PATIENT STARTED BACK ON IV D5. PATIENT VOIDED PRIOR TO GETTING BACK INTO BED AFTER LUNCH; PVR:0 VIA BLADDER SCAN. PATIENT HAS BEEN SLEEPING COMFORTABLY SINCE. 1400 BUSPAR HELD DUE TO SLEEPING/LETHARGY. CALL LIGHT W/IN REACH.
--- NOTE | 2020-11-24 20:12 | NUR ---
SPOKE WITH DR ELILSON, HE RELAYED HE HAD CHANGES QUITE A FEW OF HER MEDICATIONS, I LET HIM KNOW I HAD JUST FINISHED GIVING HER THE NIGHT TIME MEDS, HE SAID THAT WAS OK FOR TONIGHT AND PROCEED WITH THE CHANGES AFTER THAT.
--- NOTE | 2020-11-24 22:31 | NUR ---
1954 PT LYING IN BED, WHEN ASKED ANY QUESTIONS, PT SAYS YES TO EVERYTHING BUT DOES NOT PHYSICALLY LOOK TO BE HAVING ANY SYMPTOMS OF DISCOMFORT AT THIS TIME. PT WILL ALSO START TALKING ABOUT THINGS THAT HAVE NOTHING TO DO WITH THE SUBJECT OF THE QUESTIONS. TELE IS NSR. NO APPARENT SIGNS OF DISTRESS. CALL LIGHT IS IN REACH. BED ALARM IS ON.
--- NOTE | 2020-11-25 00:29 | NUR ---
PT LYING IN BED, EYES CLOSED, APPEARS TO BE RESTING. BREATHING IS EVEN, UNLABORED. NO APPARENT SIGNS OF DISTRESS. BLADDER SCAN DONE, NOT POST VOID PT IS TO SLEEPY TO USE BATHROOM AT THIS TIME, AMOUNT 965, WILL DO STRAIGHT CATH. CALL LIGHT IS IN REACH. BED ALARM IS ON.
--- NOTE | 2020-11-25 02:52 | NUR ---
0200 PT LYING IN BED, EYES CLOSED, APPEARS TO BE RESTING. BREATHING IS EVEN, UNLABORED. NO APPARENT SIGNS OF DISTRESS. CALL LIGHT IS IN REACH. BED ALARM IS ON.
--- NOTE | 2020-11-25 04:01 | NUR ---
PT LYING IN BED, EYES CLOSED, APPEARS TO BE RESTING.BREATHING IS EVEN, UNLABORED. NO APPARENT SIGNS OF DISTRESS. CALL LIGHT IS IN REACH. BED ALARM IS ON.
--- NOTE | 2020-11-25 04:02 | NUR ---
PT IS AAO X 1, SELF. TELE NSR. BLADDER SCAN WAS 965, NOT POST VOID PT WAS TOO SLEEPY TO USE THE BATHROOM, STRAIGHT CATH WAS DONE WITH RESULTS OF 1550 OF URINE. UNABLE TO ACCURATELY ASSESS PT'S COMFORT LEVEL SHE SAYS YES TO EVERYTHING ASKED EVEN THOUGH SHE DOES NOT APPEAR TO HAVE ANY SYMPTOMS OF DISTRESS.
[2020-11-25 06:07] LABS: Albumin, Blood 2.9 g/dL (3.4-5.0); Anion Gap 5 mmol/L (6-16); Blood Urea Nitrogen 55 mg/dL (8-24); Bun/Creatinine Ratio 45.8 (12.0-20.0); CO2, Blood 22 mmol/L (21-32); Calcium, Blood 8.5 mg/dL (8.5-10.1); Chloride, Blood 121 mmol/L (98-108); Glomerular Filtration Rate 46 (60-); Glucose, Blood 149 mg/dL (70-99); Potassium, Blood 3.6 mmol/L (3.5-5.5); Sodium, Blood 148 mmol/L (136-145)
--- NOTE | 2020-11-25 06:07 | NUR ---
ASSISTED RN SUPPORT SERVICES TO TURN PT, ATTENDS WAS DRY. PT LYING IN BED, EYES CLOSED, APPEARS TO BE RESTING. BREATHING IS EVEN, UNLABORED. NO APPARENT SIGNS OF DISTRESS. CALL LIGHT IS IN REACH. BED ALARM IS ON. NO OTHER CHANGES THIS SHIFT.
--- NOTE | 2020-11-25 16:18 | NUR ---
PT IS ALERT, ORIENTED TO SELF ONLY, PT IS PLEASANT CALM AND COOPERATIVE, THE PT IS A 1 PERSON ASSIST TO THE BATHROOM, THE PT WAS ENCOURAGED TO DRINK WATER T/O THE DAY AND COMPLIED WITH THAT PT VOIDED WITHOUT ANY PROBLEMS, PT WAS ABLE TO FEED HERSELF TODAY AND ATE WELL. THE PT APPEARS TO BE BREATHING EASILY ON RA AT THIS TIME, CALL LIGHT IN REACH, THE PT HAD A VISITOR TODAY, WILL CONTINUE TO MONITOR AND ASSESS FOR CHANGES
--- NOTE | 2020-11-26 06:12 | NUR ---
SHIFT SUMMARY PT IS A 60 Y/O FEMALE, ADMITTED FOR DEHYDRATION AND AMS. SHE IS A&O X SELF ONLY, ABLE TO GIVE HER NAME AND BIRTHDAY. TELE MONITOR SHOWED NSR IN THE 8OS. VITAL SIGNS STABLE. NO C/O PAIN, NAUSEA OR SOB. PT SLEPT WELL THROUGH THE NIGHT. NO ACUTE CHANGES IN PT CONDITION NOTED. WILL CONTINUE TO MONITOR AND TREAT PER EMAR UNTIL HAND OFF TO DAY SHIFT RN.
[2020-11-26 10:00] LABS: Albumin, Blood 3.2 g/dL (3.4-5.0); Anion Gap 4 mmol/L (6-16); Blood Urea Nitrogen 34 mg/dL (8-24); Bun/Creatinine Ratio 35.5 (12.0-20.0); CO2, Blood 24 mmol/L (21-32); Chloride, Blood 124 mmol/L (98-108); Creatinine, Blood 0.96 mg/dL (0.40-1.00); Glomerular Filtration Rate >60 (60-); Glucose, Blood 198 mg/dL (70-99); Sodium, Blood 152 mmol/L (136-145)
--- NOTE | 2020-11-26 14:18 | NUR ---
Upon receiving a spiritual care request, I visit patient. Patient talks in [place] and has many random subject matters but I certainly could see the emotional pain she is suffering from and the disappointment and shame she feels about herself. She is able to communicate bits and pieces about her family and her lon. She also admits to having drug and alcohol issues and struggling with poor choices with relationships. I reinforce helpful attitudes, hear confession and provide therapeutic listening and prayer. Patient responds well and states that the conversation was meaningful and encouraging. I will continue to remain available to patient and family.
--- NOTE | 2020-11-26 17:24 | NUR ---
SHIFT SUMMARY PATIENT ALERT, ORIENTED X3 THIS SHIFT. PATIENT CALM AND COOPERATIVE WITH CARE. PATIENT UP TO CHAIR FOR MEALS, BACK TO BED TO REST BETWEEN MEALS. PATIENT DENIES PAIN THIS SHIFT. PATIENT CURRENTLY SITTING UP IN CHAIR WATCHING TELEVISION.
--- NOTE | 2020-11-26 21:57 | NUR ---
BP 171/99 AND IV APRESOLINE 10 MG GIVEN FOR SBP >160. BP 138/76 RECHECK. CALL LIGHT IN REACH.
--- NOTE | 2020-11-27 04:21 | NUR ---
SHIFT SUMMARY PATIENT HAD NO ACUTE CHANGES OBSERVED. AXOX 2 WITH FLAT AFFECT. DENIES PAIN, SOB, AND N/V. ONE ASSIST TO BSC. TAKES MEDICATION CRUSHED IN APPLESAUCE. PIV REMAINS INTACT. D5 INFUSING AT 100 mL/HR X ONE. IV APRESOLINE 10 MG GIVEN FOR SBP>160. SPB 171/99 AND RECHECKED AT 138/76. ABLE TO SLEEP T/O SHIFT. CALL LIGHT IN REACH. BED IN LOWEST POSITION AND ALARM ACTIVATED. WILL CONTINUE TO MONITOR UNTIL DAY SHIFT NURSE ASSUMES CARE.
[2020-11-27 05:34] LABS: Albumin, Blood 2.8 g/dL (3.4-5.0); Anion Gap 4 mmol/L (6-16); Blood Urea Nitrogen 28 mg/dL (8-24); Bun/Creatinine Ratio 31.5 (12.0-20.0); CO2, Blood 26 mmol/L (21-32); Calcium, Blood 8.6 mg/dL (8.5-10.1); Chloride, Blood 119 mmol/L (98-108); Creatinine, Blood 0.89 mg/dL (0.40-1.00); Glomerular Filtration Rate >60 (60-); Glucose, Blood 168 mg/dL (70-99); Phosphorus, Blood 2.9 mg/dL (2.5-4.9); Sodium, Blood 149 mmol/L (136-145)
--- NOTE | 2020-11-27 15:33 | NUR ---
ALERT TO SELF AND PLACE. ONE PERSON STANDBY ASSIST. UP TO CHAIR FOR MEALS. COOPERATIVE. PLEASANT. NO C/O. UNLABORED RESPIRATIONS. IV PATENT. AWAITING PLACEMENT. NO ACUTE CHANGES. WCTM
--- NOTE | 2020-11-27 21:54 | NUR ---
BP 174/100 AND IV APRESOLINE 10 MG GIVEN FOR SBP>160 BP 149/84 ON RECHECK. WATCHING TV. CALL LIGHT IN REACH.
--- NOTE | 2020-11-28 05:14 | NUR ---
SHIFT SUMMARY PATIENT HAD NO ACUTE CHANGES OBSERVED. AXOX 2 WITH FLAT AFFECT. ONE ASSIST TO BSC. TAKES MEDICATION CRUSHED IN APPLESAUCE. ELEVATED BP X ONE AND IV APRESOLINE 10 MG GIVEN (SEE NOTE). DENIES PAIN, SOB, AND N/V. ABLE TO SLEEP MOST OF SHIFT. CALL LIGHT IN REACH. BED IN LOWEST POSITION. WILL CONTINUE TO MONITOR UNTIL DAY SHIFT NURSE ASSUMES CARE.
[2020-11-28 05:22] LABS: Hematocrit 45.5 % (33.0-51.0); Hemoglobin 15.3 g/dL (11.5-16.0); Mean Corpuscular HGB 32.7 pg (26.0-34.0); Mean Corpuscular HGB Conc 33.6 g/dL (31.5-36.5); Mean Corpuscular Volume 97 fL (80-100); Platelet Count 162 K/mm3 (150-400); RDW Coefficient Variation 12.4 % (11.7-14.2); RDW Standard Deviation 44.2 fL (35.1-46.3); Red Blood Cell Count 4.68 M/mm3 (3.80-5.20); White Blood Cell Count 8.05 K/mm3 (4.00-11.30)
[2020-11-28 05:52] LABS: Anion Gap 5 mmol/L (6-16); Blood Urea Nitrogen 19 mg/dL (8-24); Bun/Creatinine Ratio 22.6 (12.0-20.0); CO2, Blood 25 mmol/L (21-32); Calcium, Blood 9.1 mg/dL (8.5-10.1); Chloride, Blood 120 mmol/L (98-108); Creatinine, Blood 0.84 mg/dL (0.40-1.00); Glomerular Filtration Rate >60 (60-); Glucose, Blood 169 mg/dL (70-99); Phosphorus, Blood 3.1 mg/dL (2.5-4.9); Sodium, Blood 150 mmol/L (136-145)
--- NOTE | 2020-11-28 17:46 | NUR ---
ALERT TO SELF. COOPERATIVE. GIVEN WARM; PRUNE JUICE, APPLE JUICE AND MELTED PAT BUTTER FOR CONSTIPATION. ONE PERSON ASSIST. UNLABORED RESPIRATIONS. NO ACUTE CHANGES. WCTM
--- NOTE | 2020-11-29 04:07 | NUR ---
SHIFT SUMMARY PATIENT HAD NO ACUTE CHANGES OBSERVED. AXO X2 AND ONE ASSIST TO BATHROOM. DENIES PAIN, SOB, AND N/V. VSS/AFEBRILE. TAKES MEDICATION CRUSHED IN APPLESAUCE. REPORTS SHE HAS A HARD TIME SWALLOWING IF SHE DOESN'T. ABLE TO SLEEP T/O SHIFT. COOPERATIVE WITH CARE. CALL LIGHT IN REACH. BED IN LOWEST POSITION. WILL CONTINUE TO MONITOR UNTIL DAY SHIFT NURSE ASSUMES CARE.
--- NOTE | 2020-11-29 18:38 | NUR ---
PT MOSTLY QUIET TODAY. PRESENTS FLAT EFFECT AND WITHDRAWN. ALERT TO SELF. FOLLOWS INST. DID GET SHOWER TODAY. NO NEW CONCERNS AT THIS TIME. BED IN LOW POSITIOIN, CALL LITE IN REACH, BED ALARM ON FOR SAFETY. ON CAMERA.
--- NOTE | 2020-11-30 05:30 | NUR ---
SHIFT SUMMARY AOX1-SELF ONLY. STATES WE ARE IN [place], UNAWARE DATE OR HER SITUATION. HAS NONSENSICAL RESPONSES TO QUESTIONS. ABLE TO FOLLOW DIRECTIONS. TEARFUL DURING ASSESSMENT, STATES "I'M SORRY IM MAD ABOUT THE [place]" & ASKS IF WE HAVE TO GO TO [place] TONIGHT. APPEARS ANXIOUS/FEARFUL. VSS. REPORTED GENERALIZED PAIN ALLOVER ABD LAST NIGHT, MEDICATED 1X c TYLENOL & PT DENIED FURTHER DISCOMFORT. SLEPT WELL T/O NIGHT. INCONT OF URINE. AWAITING SAFE DC PLAN. CALL LIGHT & BED ALARM IN PLACE FOR SAFETY. WILL MONITOR.
--- NOTE | 2020-11-30 15:18 | NUR ---
PATIENT PLEASANT AND COOPERATIVE WITH STAFF. NO COMPLAINTS OF PAIN OR DISCOMFORT. PLEASANTLY CONFUSED. VITALS STABLE. NO ACUTE CHANGES TO REPORT OF AT THIS TIME. CALL LIGHT WITHIN REACH.
--- NOTE | 2020-12-01 05:57 | NUR ---
SHIFT SUMMARY AOX2-SELF & TOWN. STATES "I DON'T KNOW" TO DATE & WHY SHE'S IN HOSPITAL. APPEARS MORE ALERT TONIGHT, NO NONSENSICAL SPEECH. ALL RESPONSES CORRESPOND TO QUESTIONS ASKED. STILL FORGETFUL & DOESNT USE CALL LIGHT FOR ASSISTANCE. PT DOES STATE "YES" TO ALL YES/NO QUESTIONS, FOR EXAMPLE YES TO SOB, PAIN & NAUSEA. HOWEVER SITTING ON EDGE OF BED W/O ANY S/S OF DISTRESS. VSS. AWAITING SAFE DC PLAN. CALL LIGHT & BED ALARM IN PLACE FOR SAFETY.
[2020-12-01 12:46] LABS: Hematocrit 46.6 % (33.0-51.0); Hemoglobin 15.7 g/dL (11.5-16.0)
[2020-12-01 13:15] LABS: Anion Gap 5 mmol/L (6-16); Blood Urea Nitrogen 15 mg/dL (8-24); Bun/Creatinine Ratio 17.1 (12.0-20.0); CO2, Blood 28 mmol/L (21-32); Calcium, Blood 8.9 mg/dL (8.5-10.1); Chloride, Blood 105 mmol/L (98-108); Creatinine, Blood 0.88 mg/dL (0.40-1.00); Glomerular Filtration Rate >60 (60-); Glucose, Blood 150 mg/dL (70-99); Sodium, Blood 138 mmol/L (136-145)
--- NOTE | 2020-12-01 15:13 | NUR ---
Patient is lying in bed and alert. Patient tells me that she is not doing well. She says that sh ewants to leave her rm but she has no place to go and that makes her sad. She goes on to say that she misses "big mama" and her sister. She states that she doesn't know who big mama is but she misses her. Patient shares that she feels scared sometimes and like she is going to because she "can't make it out on the streets anymore." I provide therapeutic listening, anxiety containment, emotional support and prayer. Patient responds well and displays evidence of increased peace. Patient voices appreciation for talking with her and for the prayer. I will continue to remain available to patient and family.
--- NOTE | 2020-12-01 15:19 | NUR ---
PATIENT IS PLEASANTLY CONFUSED. COOPERATES WITH STAFF. VITALS STABLE. LABS IMPROVING. PATIENT HAS A FAIRLY STABLE GAIT BUT REQUIRES A LOT OF PROMPTING. SHE FORGETS THAT SHE IS ABLE TO AMBULATE AND SAYS THAT SHE "CAN'T WALK". SHE HAS TO BE REMINDED THAT SHE IS ABLE TO AND ONCE ENCOURAGED SHE IS ABLE TO STAND AND AMBULATE TO/FROM THE BATHROOM. THE SAME GOES WITH FEEDING HERSELF. SHE REQUIRES MEAL SET-UP AND WONT TOUCH HER FOOD UNTIL SHE IS REMINDED AND ENCOURAGED TO EAT; SHE IS ABLE TO FEED HERSELF WITH PROMPTING. SHE DRINKS ANYTHING YOU PUT IN FRONT OF HER. SHE HAS BEEN WORKING WELL WITH PT/OT. PATIENT IS NOW SLEEPING IN HER ROOM. CALL LIGHT IN REACH.
--- NOTE | 2020-12-02 06:14 | NUR ---
SHIFT SUMMARY PATIENT ALERT AND ORIENTED TO SELF ONLY. HAD NO COMPLAINTS OF PAIN OR SHORTNESS OF BREATH. PATIENT SLEPT WELL OVERNIGHT. NO ACUTE ISSUES NOTED. IV PATENT AND FLUSHED. BED IN LOWEST POSITION WITH WHEELS LOCKED. CALL LIGHT WITHIN REACH. REPORT GIVEN TO ONCOMING RN.
[2020-12-02] MEDS ORDERED: AMLO5 PO (11:06)
[2020-12-02] MEDS ORDERED: LISI10 PO (11:06)
[2020-12-02 13:36] LABS: Influenza A, PCR NEGATIVE (NEGATIVE); Influenza B, PCR NEGATIVE (NEGATIVE); Resp Syncytial Virus, PCR NEGATIVE (NEGATIVE); SARS-Cov-2 (COVID-19) PCR, MMC NEGATIVE (NEGATIVE)
--- NOTE | 2020-12-02 15:47 | NUR ---
PATIENT DISWCHARGE: PATIENT DISCHARGED TO [facility] ([facility]) THIS SHIFT. MEDICATION RECONCILIATION COMPLETED; MED LIST PROVIDED TO [facility]. PATIENT DEPARTED MEDICAL FLOOR VIA [facility] WITH WHEELCHAIR AT 1514. PATIENT DEPARTED [facility] VIA WHEELCHAIR TRANSPORT.
== END 2020-12-02 15:14 | disposition home or self-care (01) | DRG 640 ==
LOC: ER 16:09 → MEDS 19:15 → ERHOLD 19:15 → MEDS 22:28
PROVIDERS: Emergency Medicine; Internal Medicine; ADMIT Internal Medicine
DX: E87.0 Hyperosmolality and hypernatremia (principal); G92 Toxic encephalopathy; G93.41 Metabolic encephalopathy; N17.9 Acute kidney failure, unspecified; I69.354 Hemiplegia and hemiparesis following cerebral infarction affecting left non-dominant side; E86.0 Dehydration; E78.1 Pure hyperglyceridemia; F31.9 Bipolar disorder, unspecified; I10 Essential (primary) hypertension; E03.9 Hypothyroidism, unspecified; F15.10 Other stimulant abuse, uncomplicated; Z20.822 Contact with and (suspected) exposure to COVID-19; Z88.0 Allergy status to penicillin; Z88.5 Allergy status to narcotic agent; Z88.8 Allergy status to other drugs, medicaments and biological substances; F20.9 Schizophrenia, unspecified; B19.20 Unspecified viral hepatitis C without hepatic coma; Z79.899 Other long term (current) drug therapy; F17.210 Nicotine dependence, cigarettes, uncomplicated; R21 Rash and other nonspecific skin eruption; G40.909 Epilepsy, unspecified, not intractable, without status epilepticus; Z98.51 Tubal ligation status; Z98.890 Other specified postprocedural states
CPT/HCPCS: 0241U; 36415; 70450; 71045; 76770; 80048; 80053; 80069; 80178; 81001; 82947; 83605; 84439; 84443; 85014; 85018; 85025; 85027; 87040; 87086; 96361; 96365; 96375; 97116; 97129; 97162; 97165; 99285-25; A9270; G0480; J0360; J0696; J1650; J2405; J7060; J7070

== ENCOUNTER 2021-03-22 08:21 | Inpatient (IN) | payer OTHER ==
[~2021-03-22] VITALS: Ht 170.2 cm; Wt 82.0 kg
[~2021-03-22 08:21] MED LIST changes: +AMLO5 PO; +BUSP5 PO; +GABAPENTIN600 MG PO; +LISI10 PO
[2021-03-22] MEDS ORDERED: VITAMIN D31000 UNI1 PO (08:46)
[2021-03-22] MEDS ORDERED: GABA100 PO (08:46)
[2021-03-22] MEDS ORDERED: SENNA LAXATIVE8.6 MG PO (08:47)
[2021-03-22] MEDS ORDERED: ZYRTEC10 M2 PO (08:47)
[2021-03-22] MEDS ORDERED: LITH300C PO (08:48)
[2021-03-22] MEDS ORDERED: GABA300 PO (08:48)
[2021-03-22] MEDS ORDERED: QUET300 PO (08:49)
[2021-03-22] MEDS ORDERED: EUTHYROX50 MCG PO (08:49)
[2021-03-22 09:39] LABS: BASOPHILS ABSOLUTE AUTO 0.03 K/mm3 (0.00-0.23); BASOPHILS PERCENT AUTO 0 % (0-2); EOSINOPHILS ABSOLUTE AUTO 0.27 K/mm3 (0.00-0.68); EOSINOPHILS PERCENT AUTO 2 % (0-6); Hematocrit 38.8 % (33.0-51.0); Hemoglobin 12.8 g/dL (11.5-16.0); IMMATURE GRAN ABSOLUTE AUTO 0.08 K/mm3 (0.00-0.10); IMMATURE GRAN PERCENT AUTO 1 % (0-1); LYMPHOCYTES PERCENT AUTO 35 % (21-46); MONOCYTES ABSOLUTE AUTO 0.77 K/mm3 (0.16-1.47); MONOCYTES PERCENT AUTO 6 % (4-13); Mean Corpuscular HGB 33.7 pg (26.0-34.0); Mean Corpuscular Volume 102 fL (80-100); Mean Platelet Volume 9.4 fL (9.1-12.4); NEUTROPHILS ABSOLUTE AUTO 6.87 K/mm3 (1.96-9.15); NEUTROPHILS PERCENT AUTO 56 % (41-73); Platelet Count 195 K/mm3 (150-400); RDW Coefficient Variation 13.7 % (11.7-14.2); RDW Standard Deviation 51.8 fL (35.1-46.3); White Blood Cell Count 12.32 K/mm3 (4.00-11.30)
[2021-03-22 09:54] LABS: Alanine Aminotransfer (ALT/SGP 40 U/L (12-78); Albumin, Blood 3.3 g/dL (3.4-5.0); Alk Phos 116 U/L (50-136); Anion Gap 8 mmol/L (6-16); Aspartate Aminotrans (AST/SGOT 30 U/L (12-37); Bilirubin, Total 0.4 mg/dL (0.1-1.0); Blood Urea Nitrogen 63 mg/dL (8-24); CO2, Blood 16 mmol/L (21-32); Calcium, Blood 8.1 mg/dL (8.5-10.1); Chloride, Blood 105 mmol/L (98-108); Ethanol (Alcohol), Blood, Med <3 mg/dL; Globulin, Blood 3.4 g/dL (2.2-4.0); Glomerular Filtration Rate 11 (60-); Glucose, Blood 125 mg/dL (70-99); Magnesium, Blood 2.4 mg/dL (1.6-2.4); Potassium, Blood 4.5 mmol/L (3.5-5.5); Sodium, Blood 129 mmol/L (136-145); Total Protein, Blood 6.7 g/dL (6.4-8.2)
[2021-03-22 09:58] LABS: Lithium 1.93 mmol/L (0.60-1.20)
[2021-03-22 10:03] LABS: Free Thyroxine 0.67 ng/dL (0.70-1.60); Thyroid Stimulating Hormone 3.94 uIU/mL (0.360-4.800)
[2021-03-22 10:20] LABS: Source, Urine Clean Catch
[2021-03-22 10:40] LABS: Bilirubin, Urine Neg (Neg); Blood, Urine Neg (Neg); Glucose Qualitative, Urine Neg (Neg); Ketones, Urine Neg (Neg); Leukocyte Esterase, Urine 1+ (Neg); Nitrite, Urine Neg (Neg); Protein, Urine 1+ (Neg); Specific Gravity, Urine 1.015 (1.003-1.022); Urobilinogen, Urine NORM (Normal)
[2021-03-22 11:04] LABS: Appearance, Urine Clear (Clear); Color, Urine Yellow (P-Yellow)
[2021-03-22 11:06] LABS: Bacteria Rare /hpf; Red Blood Cells, Urine 0-2 /hpf (0-2); Squamous Epithelial Cells Few /hpf (Few)
[2021-03-22 11:10] LABS: Base Excess Venous -11.4 mmol/L; Bicarbonate Venous 15.1 mmol/L (24.0-30.0); PCO2 Venous 44.9 mmHg (38-42); PO2 Venous 33.6 mmHg (38-42); pH Blood Venous 7.18 (7.34-7.37)
[2021-03-22 11:39] LABS: U Amphetamine Screen Not Detected; U Barbituate Screen Not Detected; U Benzodiazapine Screen Not Detected; U Buprenorphine Screen Not Detected; U Cannabinoids Screen Not Detected; U Cocaine Screen Not Detected; U Methadone Screen Not Detected; U Methamphetamine Screen Not Detected; U Opiates Screen Not Detected; U Oxycodone Screen Not Detected; U Phencyclidine Screen Not Detected; U Propoxyphene Screen Not Detected
[2021-03-22] MEDS ORDERED: DOCUZEN 8.6-501 EACH PO (11:57)
--- NOTE | 2021-03-22 13:10 | NUR ---
RECEIVED PT FROM ER VIA [employer]. PT IS AWAKE AND ALERT. SPEECH IS SLURRED. CONVERSATION FOR THE MOST PART IS APPROPRIATE.CRUM. PT STATES THAT SHE FEELS "A LITTLE BIT SHAKY." SHE DOES APPEAR TO BE TREMULOUS AT TIMES. PT REPORTS THAT SHE LIVES AT [facility]. SHE HAS GIVEN PERMISSION FOR RODRICK AND SARA AT [facility] TO HAVE HER MEDICAL INFORMATION. PT STATES THAT SHE AND HER FRIEND WENT FOR A WALK YESTERDAY FOR APROXIMATELY 6 HOURS IN THE HEAT. PT REPORTS "I DIDN'T DRINK ANY WATER.MY KIDNEYS AREN'T THAT GOOD ANYWAY. I HAVEN'T HAD DIALYSIS BEFORE. THEY ARE JUST WATCHING THE NUMBERS." PT SEEMS TO BE AT HER NEURO BASELINE OTHER THAN THE OCCASIONAL TREMORS AND FEELING "SHAKY." PMH: HYPOTHYROID, PANCREATITIS, HEP C, POLYSUBSTANCE USE-NONE IN AT LEAST A YEAR PER PT. SCHIZOPHRENIA, BIPOLAR, CURRENT EVERY DAY SMOKER 1 PACK/DAY, SEIZURES, LEFT HIP SURGERY, AND TUBAL LIGATION. ECG SHOWS SR WITH FISRT DEGREE AV BLOCK. SBP 90'S. NO NOTED EDEMA. LUNGS CLEAR, BUT DIMINISHED IN THE BASES. NO NOTED SOB/RESPIRATORY DISTRESS. SATS>90% ON RA. PT DENIES GI DISTRESS. SHE REPORTS THAT SHE HAD A BM THIS AM. SHE ATE LUNCH IN THE ER PRIOR TO ADMIT. #22 TO LEFT HAND-SITE CLEAR, BUT PT STATES IT IS SLIGHTLY TENDER. PT IS DIFFICULT VENIPUNCTURE. EXTENDED DWELL CATHETER STARTED BY TAMANNA DEL TORO. SODIUM BICARB DRIP INITIATED X 1 LITER-SEE EMAR. DR. JUAN HAS BEEN CONSULTED.
[2021-03-22 13:38] LABS: Lithium 1.73 mmol/L (0.60-1.20)
--- NOTE | 2021-03-22 14:45 | NUR ---
DR. JUAN HERE TO SEE PT. MADE AWARE THAT PT UP TO BRP TO VOID X 1 UNMEASURED-WILL BE ON STRICT I&O. CPK AND PRE-CALCITONIN DRAWN AND SENT TO LAB. PT ABLE TO AMBULATE TO BRP WITH ONE PERSON-STANDBY ASSIST. TOLERATED WELL.
[2021-03-22 16:43] LABS: Albumin, Blood 3.2 g/dL (3.4-5.0); Anion Gap 5 mmol/L (6-16); Blood Urea Nitrogen 58 mg/dL (8-24); Bun/Creatinine Ratio 15.3 (12.0-20.0); CO2, Blood 20 mmol/L (21-32); Chloride, Blood 111 mmol/L (98-108); Glomerular Filtration Rate 13 (60-); Glucose, Blood 110 mg/dL (70-99); Phosphorus, Blood 6.4 mg/dL (2.5-4.9); Potassium, Blood 4.3 mmol/L (3.5-5.5); Sodium, Blood 136 mmol/L (136-145)
--- NOTE | 2021-03-22 17:09 | NUR ---
DR. JUAN UPDATED TO RENAL PANEL, PROCALCITONIN, AND CK RESULTS. ORDERS TO CONTINUE NS @ 150 CC/HR AFTER CURRENT SODIUM BICARB DRIP COMPLETED. NO OTHER ORDERS AT THIS TIME.
[2021-03-22 17:17] LABS: Lithium 1.57 mmol/L (0.60-1.20)
--- NOTE | 2021-03-22 18:30 | NUR ---
POISON CONTROL UPDATED REGARDING PT CURRENT LABS-INCLUDING CMP AND LITHIUM LEVEL. ECG DONE- DR. JUAN CONTACTED REGARDING POISON CONTROLS SUGGESTION TO CONTINUE BICARB DRIP-ORDER GIVEN TO CONTINUE BICARB DRIP @ 150 CC/HR.
--- NOTE | 2021-03-22 20:59 | NUR ---
RECEIVED ORDERS TO HOLD SEROQUEL AND ZYPREXA THIS EVENING R/T QTC PROLONGATION.
--- NOTE | 2021-03-23 03:05 | NUR ---
PT ARRIVED TO PCU AT 0115 FROM ICU. THIS RN RECEIVED VERBAL REPORT VIA TELEPHONE FROM NURSE RAHMAN. PT IS SBA TO [facility] DUE TO WEAKNESS AND DIZZINESS, WHICH IS BASELINE SECONDARY TO CHORNIC CEREBRELLAR HYPERTROPHY. SHE HAS BILAT TREMORS IN UPPER EXTREMITIES. SATING ABOVE 92% ON ROOM AIR. TELEMETRY MONITORED PT SINUS BRADYCARDIA IN THE 50'S. BICARB INFUSING INTO MAURISIO POWERGLIDE. ALSO IV ACCESS ON LEFT HAND. PT IS SLOW TO RESPOND TO QUESTIONS, PLEASANT AND COOPERATIVE WITH STAFF. WEARS BOTTOM DENTURES. PT IS A & O X2-3. TO PERSON, PLACE AND EVENT. CALL LIGHT IN PLACE. SLEEPING. WILL CONTINUE TO MONITOR.
[2021-03-23 05:31] LABS: BASOPHILS ABSOLUTE AUTO 0.02 K/mm3 (0.00-0.23); BASOPHILS PERCENT AUTO 0 % (0-2); EOSINOPHILS ABSOLUTE AUTO 0.13 K/mm3 (0.00-0.68); EOSINOPHILS PERCENT AUTO 2 % (0-6); Hematocrit 32.9 % (33.0-51.0); Hemoglobin 11.3 g/dL (11.5-16.0); IMMATURE GRAN ABSOLUTE AUTO 0.03 K/mm3 (0.00-0.10); IMMATURE GRAN PERCENT AUTO 1 % (0-1); LYMPHOCYTES ABSOLUTE AUTO 2.49 K/mm3 (0.84-5.20); LYMPHOCYTES PERCENT AUTO 41 % (21-46); MONOCYTES ABSOLUTE AUTO 0.46 K/mm3 (0.16-1.47); MONOCYTES PERCENT AUTO 8 % (4-13); Mean Corpuscular HGB 33.9 pg (26.0-34.0); Mean Corpuscular HGB Conc 34.3 g/dL (31.5-36.5); Mean Corpuscular Volume 99 fL (80-100); Mean Platelet Volume 9.7 fL (9.1-12.4); NEUTROPHILS ABSOLUTE AUTO 2.97 K/mm3 (1.96-9.15); NEUTROPHILS PERCENT AUTO 49 % (41-73); Platelet Count 175 K/mm3 (150-400); RDW Coefficient Variation 13.3 % (11.7-14.2); RDW Standard Deviation 48.2 fL (35.1-46.3); Red Blood Cell Count 3.33 M/mm3 (3.80-5.20)
[2021-03-23 05:52] LABS: Albumin, Blood 3.1 g/dL (3.4-5.0); Albumin/Globulin Ratio 1.1 (0.8-1.8); Bilirubin, Total 0.2 mg/dL (0.1-1.0); Bun/Creatinine Ratio 19.4 (12.0-20.0); Creatinine, Blood 2.84 mg/dL (0.40-1.00); Globulin, Blood 2.9 g/dL (2.2-4.0); Magnesium, Blood 2.4 mg/dL (1.6-2.4); Potassium, Blood 4.2 mmol/L (3.5-5.5)
[2021-03-23 06:34] LABS: Lithium 1.29 mmol/L (0.60-1.20)
[2021-03-23 11:48] LABS: Lithium 1.23 mmol/L (0.60-1.20)
--- NOTE | 2021-03-23 13:09 | NUR ---
POISON CONTROL/ EKG CHANGE PT WAS ON A BICARB DRIP THIS MORNING, DR. JUAN WANTED THE BICARB DC'D AFTER THE PT HAD FINISHED THE LITER THAT WAS RUNNING THEN HAVE HER SWITCHED TO NS. POISON CONTROL EXPLAINED THAT 1 HOUR AFTER THE BICARB DRIP IS STOPPED THE RECCOMENDATION IS TO REPEAT AN EKG. THE REPEAT EKG SHOWED A WIDER QRS AT 118MS AND WIDE QTc AT 466MS. DR. KING WAS NOTIFIED. SODIUM, POTASSIUM LEVELS AND VS ARE STABLE. LITHIUM BLOOD LEVEL HAS IMPROVED AND IS CLOSE TO THERAPEUTIC RANGE
[2021-03-23 16:45] LABS: Albumin, Blood 3.2 g/dL (3.4-5.0); Anion Gap 4 mmol/L (6-16); Blood Urea Nitrogen 51 mg/dL (8-24); Bun/Creatinine Ratio 18.1 (12.0-20.0); CO2, Blood 25 mmol/L (21-32); Calcium, Blood 8.1 mg/dL (8.5-10.1); Chloride, Blood 117 mmol/L (98-108); Creatinine, Blood 2.81 mg/dL (0.40-1.00); Glomerular Filtration Rate 18 (60-); Glucose, Blood 122 mg/dL (70-99); Phosphorus, Blood 4.3 mg/dL (2.5-4.9); Potassium, Blood 4.7 mmol/L (3.5-5.5); Sodium, Blood 146 mmol/L (136-145)
--- NOTE | 2021-03-23 18:18 | NUR ---
SHIFT SUMMARY PT HAS SPENT MOST OF THE DAY RESTING. PT'S LITHIUM LEVELS HAVE DECREASED HOWEVER HER QTc AND QRS COMPLEXES ARE STILL WIDE/LONG. PT HAS BEEN RESTARTED ON BICARB PER DR. JUAN'S ORDERS. VS STABLE, PT ON RA. PT HAS TREMORS BUT STATES THAT THIS IS HER BASELINE. PT IS ABLE TO WALK TO THE BATHROOM WITH SBA. PT HAS BEEN COOPERATIVE WITH CARE. PT RESTING IN BED AT THIS TIME
--- NOTE | 2021-03-24 05:34 | NUR ---
PATIENT WAS LETHARGIC BUT AROUSABLE WITH VERBAL STIMULI, STAND BY ASSIST TO BATHROOM, STEADY GAIT. CALLS APPROPRIATELY, FOLLOWS COMMANDS, PATIENT IS ORIETATED WAXES AND WANES ON TIME AND SITUATION.
[2021-03-24 09:16] LABS: Appearance, Urine Clear (Clear); Bilirubin, Urine Neg (Neg); Blood, Urine Neg (Neg); Glucose Qualitative, Urine Neg (Neg); Ketones, Urine Neg (Neg); Leukocyte Esterase, Urine Neg (Neg); Nitrite, Urine Neg (Neg); Protein, Urine Neg (Neg); Urobilinogen, Urine NORM (Normal)
[2021-03-24 09:35] LABS: Color, Urine Pale Yellow (P-Yellow)
--- NOTE | 2021-03-24 19:36 | NUR ---
SHIFT SUMMARY PT HAS BEEN MORE AWAKE TODAY THAN SHE WAS YESTERDAY WITH RN SHERRIE. PT WAS ABLE TO WORK WITH PHYSICAL THERAPY AND OCCUPATIONAL THERAPY TODAY, AND SPENT TIME IN THE CHAIR. PT IS SBA WITH THE WALKER TO THE BATHROOM. PT'S BICARB DRIP WAS STOPPED THIS AFTERNOON AND THE EKG WAS REPEATED THIS EVENING SHOWING PERSISTENT WIDE QRS AND QTc. DR. JUAN WAS NOTIFIED AND BICARB WAS RESTARTED, DRAKE TO REEVALUATE IN THE MORNING 03/25/21 PT HAS BEEN ENCOURAGED TO INCREASE PO INTAKE WELL. POWER GLIDE IN THE RIGHT UPPER ARM DRAWS WELL FOR LABS AT THIS TIME. VS STABLE, PT ON RA. POISON CONTROL IS STILL ON THE CASE AND HAS CALLED FREQUENTLY FOR UPDATES ON VS, LABS AND EKG RESULTS; TODAY IT WAS RECOMMENDED THAT A MAGNESIUM LEVEL BE REDRAWN IN THE MORNING SINCE IT HASN'T BEEN DONE SINCE 03/23/21 AND SHE HAS BEEN ON THE BICARB GTT FOR LONGER PERIOD OF TIME. PT WAS UNSURE OF THE EVENT THAT BROUGHT HER HERE AND DENIED TAKING ANY EXCESS LITHIUM.
--- NOTE | 2021-03-24 22:47 | NUR ---
RECEIVED MSG TO CALL NIDIA FROM [facility]. RETURNED CALL TO NIDIA AT [phone] BUT WAS UNABLE TO REACH HER.
[2021-03-25 05:35] LABS: BASOPHILS ABSOLUTE AUTO 0.02 K/mm3 (0.00-0.23); BASOPHILS PERCENT AUTO 0 % (0-2); EOSINOPHILS ABSOLUTE AUTO 0.14 K/mm3 (0.00-0.68); EOSINOPHILS PERCENT AUTO 2 % (0-6); Hematocrit 32.5 % (33.0-51.0); IMMATURE GRAN ABSOLUTE AUTO 0.02 K/mm3 (0.00-0.10); IMMATURE GRAN PERCENT AUTO 0 % (0-1); LYMPHOCYTES ABSOLUTE AUTO 2.66 K/mm3 (0.84-5.20); LYMPHOCYTES PERCENT AUTO 32 % (21-46); MONOCYTES ABSOLUTE AUTO 0.46 K/mm3 (0.16-1.47); MONOCYTES PERCENT AUTO 6 % (4-13); Mean Corpuscular HGB 33.8 pg (26.0-34.0); Mean Corpuscular HGB Conc 33.8 g/dL (31.5-36.5); Mean Corpuscular Volume 100 fL (80-100); Mean Platelet Volume 9.5 fL (9.1-12.4); NEUTROPHILS ABSOLUTE AUTO 5.07 K/mm3 (1.96-9.15); NEUTROPHILS PERCENT AUTO 61 % (41-73); Platelet Count 181 K/mm3 (150-400); RDW Coefficient Variation 13.5 % (11.7-14.2); RDW Standard Deviation 49.8 fL (35.1-46.3); Red Blood Cell Count 3.25 M/mm3 (3.80-5.20); White Blood Cell Count 8.37 K/mm3 (4.00-11.30)
[2021-03-25 05:54] LABS: Bun/Creatinine Ratio 20.1 (12.0-20.0); Calcium, Blood 8.4 mg/dL (8.5-10.1); Creatinine, Blood 1.59 mg/dL (0.40-1.00); Magnesium, Blood 1.9 mg/dL (1.6-2.4); Potassium, Blood 4.5 mmol/L (3.5-5.5)
--- NOTE | 2021-03-25 06:22 | NUR ---
SHIFT SUMMARY PT RECEIVED BI-CARB VIA IV. SLEPT MOST OF THE SHIFT. C/O CONSTIPATION - RECEIVED PRUNE JUICE. PT'S TEMP INCREASED TO 99.8 - 100.0 AT 0400. TELE SHOWED SINUS AT 77. VSS. NO ACUTE CHANGES. WILL CONTINUE TO MONITOR.
[2021-03-25 06:30] LABS: Lithium 0.68 mmol/L (0.60-1.20)
--- NOTE | 2021-03-25 11:30 | NUR ---
POISON CONTROL CALLED RE LITHIUM . STATES FATER BICARB STOPPED, REQUEST NEW EKG TO ASSESS QRS STATES IF > 120 MIL SEC, THEN REQUEST RESTART BICARB. AND ASSESS QTC, IF > 500 THEN REPLEAT MAG UNTIL >2.[address] OLEA. OKAYED EKG. CALL IF NOT NORMAL
--- NOTE | 2021-03-25 12:16 | NUR ---
IN ROOM. ADVISED OF NOON BP. WILL DISCUSS RESTARTING LISINOPRIL WITH DR JUAN. WILL ADVISE. NO ORDERS AT THIS TIME
--- NOTE | 2021-03-25 17:53 | NUR ---
PT PLEASANT TODAY. DENIES PAIN TO ME. PT ALERT TO SELF, , YR. AND SITUATION. CONCRETE . DETAILS HARDER FOR PT. DISCUSSED HTN WITH . SHE TO DISCUSS WITH DR JUAN. NO OTHER CONCERNS NOTED. BED IN LOW POSITION, CALL LITE IN REACH CALLS APPROP
--- NOTE | 2021-03-26 02:06 | NUR ---
UPDATE TO POISON CONTROL AT 2200, SPOKE TO GAEL FROM POISON CONTROL - UPDATED ON PT CONDITION, EKG RESLUTS AND LABS.
--- NOTE | 2021-03-26 02:46 | NUR ---
PHONE CALL TO PROVIDER CALL PLACED TO DR. HANSON WITH CONCERN FOR PT'S SBP >170'S. MARGIE WITH ORDERS - HYDRALAZINE 10 MG IV Q 6H FOR SBP > 160.
--- NOTE | 2021-03-26 06:05 | NUR ---
SHIFT SUMMARY NORA HAD SOME HIGHER BLOOD PRESSURES THROUGH OUT THE SHIFT. DENIES HEADACHE OR CHEST PAIN. RECEIVED ORDERS FROM MD FOR PRN HYDRALAZINE. AT 0400 HER SBP WAS 156, SO THE PRN WAS NOT GIVEN. NORA STATED THAT HER THOUGHTS ARE BECOMING "CLEARER." SHE IS ABLE TO EXPRESS HERSELF BETTER IN COMPLETE SENTENCES, AND WAS MORE ORIENTED TO HER SURRONDINGS IN THE HOSPITAL. 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 RN SPOKE TO POISON CONTROL, WHO HAD NO FURTHER RECOMMENDATIONS AT THIS TIME. WILL CONTINUE TO MONITOR.
--- NOTE | 2021-03-26 11:07 | NUR ---
PT ALERT AND ORIENTED X2-3. STATES SHE IS FEELING MORE LIKE HERSELF. ON ROOM AIR SATING ABOVE 94%. DENIES SOB. LUNGS SOUNDING CLEAR. TELE SHOWING SINUS WITH HR 70'S. DENIES CHEST PAIN/PRESSURE. VITAL SIGNS STABLE. BOWEL TONES HEARD. PT ABLE TO VOID. BED ALARM AND CHAIR ALARM ON FOR SAFETY. CALL LIGHT IN REACH. PATIENT EATING WELL. DISCHARGE ORDERS IN PLACE. WILL CONTINUE TO MONITOR.
--- NOTE | 2021-03-26 13:00 | NUR ---
DISCHARGE: NO ACUTE CHANGES SEE PREVIOUS NOTE. PT TAKEN OUT TO [facility] VIA WHEELCHAIR. DISCHARGE PAPERWORK REVIEWED AND QUESTIONS ANSWERED. IV TAKEN OUT PER PROTOCOL. DISCHARGE WNL.
[2021-03-29 16:10] LABS: A/G RATIO 1.4 (0.7-1.7); ALBUMIN 3.4 g/dL (2.9-4.4); ALPHA-1-GLOBULIN 0.2 g/dL (0.0-0.4); ALPHA-2-GLOBULIN 0.7 g/dL (0.4-1.0); BETA GLOBULIN 0.9 g/dL (0.7-1.3); GAMMA GLOBULIN 0.7 g/dL (0.4-1.8); GLOBULIN, TOTAL 2.5 g/dL (2.2-3.9); IMMUNOGLOBULIN A, QN, SERUM 247 mg/dL (87-352); IMMUNOGLOBULIN G, QN, SERUM 798 mg/dL (586-1602); IMMUNOGLOBULIN M, QN, SERUM 41 mg/dL (26-217); M-SPIKE Not Observed g/dL (Not Observed); PROTEIN, TOTAL, SERUM 5.9 g/dL (6.0-8.5)
== END 2021-03-26 12:45 | disposition home or self-care (01) | DRG 917 ==
LOC: ER 08:21 → PCU 11:04 → ERHOLD 11:04 → ICUW 11:49 → PCU 03-23 01:29
PROVIDERS: Emergency Medicine; Family Medicine; Internal Medicine; Nurse Practitioner Acute Care; Student in an Organized Health Care Education/Training Program; ADMIT Internal Medicine
DX: T56.891A Toxic effect of other metals, accidental (unintentional), initial encounter (principal); G92 Toxic encephalopathy; N17.9 Acute kidney failure, unspecified; E87.1 Hypo-osmolality and hyponatremia; I95.89 Other hypotension; I44.0 Atrioventricular block, first degree; E86.0 Dehydration; I12.9 Hypertensive chronic kidney disease with stage 1 through stage 4 chronic kidney disease, or unspecified chronic kidney disease; N18.9 Chronic kidney disease, unspecified; F17.210 Nicotine dependence, cigarettes, uncomplicated; F31.9 Bipolar disorder, unspecified; E03.9 Hypothyroidism, unspecified; Q03.1 Atresia of foramina of Magendie and Luschka; Z88.0 Allergy status to penicillin; Z88.5 Allergy status to narcotic agent; Z88.8 Allergy status to other drugs, medicaments and biological substances; Z79.899 Other long term (current) drug therapy; Z86.73 Personal history of transient ischemic attack (TIA), and cerebral infarction without residual deficits; Z98.890 Other specified postprocedural states; Z98.51 Tubal ligation status
CPT/HCPCS: 36415; 70450; 71045; 76770; 80048; 80053; 80069; 80178; 81001; 81003; 82550; 82784; 82803; 82947; 83605; 83735; 83935; 84145; 84165; 84439; 84443; 85025; 86334; 87077; 87086; 87186; 93005; 93010; 94760; 96372; 97116; 97162; 97165; 97530; 97535; 99285-25; A9270; C1751; G0480; J1644; J7030

== ENCOUNTER → 2021-06-03 | Outpatient (CLI) | payer OTHER ==
[~2021-06-03] MED LIST changes: +EUTHYROX50 MCG PO; +GABA100 PO; +GABA300 PO; +QUET300 PO; +SENNA LAXATIVE8.6 MG PO; +VITAMIN D31000 UNI1 PO; +ZYRTEC10 M2 PO
[2021-06-03 13:49] LABS: BASOPHILS ABSOLUTE AUTO 0.02 K/mm3 (0.00-0.23); BASOPHILS PERCENT AUTO 0 % (0-2); EOSINOPHILS ABSOLUTE AUTO 0.05 K/mm3 (0.00-0.68); EOSINOPHILS PERCENT AUTO 1 % (0-6); Hematocrit 41.6 % (33.0-51.0); Hemoglobin 15.3 g/dL (11.5-16.0); IMMATURE GRAN ABSOLUTE AUTO 0.02 K/mm3 (0.00-0.10); IMMATURE GRAN PERCENT AUTO 0 % (0-1); LYMPHOCYTES ABSOLUTE AUTO 4.35 K/mm3 (0.84-5.20); LYMPHOCYTES PERCENT AUTO 48 % (21-46); MONOCYTES ABSOLUTE AUTO 0.61 K/mm3 (0.16-1.47); MONOCYTES PERCENT AUTO 7 % (4-13); Mean Corpuscular HGB 33.3 pg (26.0-34.0); Mean Corpuscular HGB Conc 36.8 g/dL (31.5-36.5); Mean Corpuscular Volume 90 fL (80-100); Mean Platelet Volume 9.9 fL (9.1-12.4); NEUTROPHILS ABSOLUTE AUTO 4.05 K/mm3 (1.96-9.15); NEUTROPHILS PERCENT AUTO 45 % (41-73); Platelet Count 189 K/mm3 (150-400); RDW Coefficient Variation 11.9 % (11.7-14.2); RDW Standard Deviation 39.3 fL (35.1-46.3)
[2021-06-03 20:13] LABS: Albumin, Blood 4.3 g/dL (3.4-5.0); Albumin/Globulin Ratio 1.3 (0.8-1.8); Bilirubin, Total 0.7 mg/dL (0.1-1.0); Bun/Creatinine Ratio 10.6 (12.0-20.0); Calcium, Blood 9.2 mg/dL (8.5-10.1); Creatinine, Blood 1.04 mg/dL (0.40-1.00); Globulin, Blood 3.3 g/dL (2.2-4.0); Thyroid Stimulating Hormone 0.925 uIU/mL (0.360-4.800); Total Protein, Blood 7.6 g/dL (6.4-8.2)
== END | disposition home or self-care (01) ==
LOC: LAB 12:12 → LAB SHORT 12:12
PROVIDERS: Internal Medicine
DX: D64.9 Anemia, unspecified (principal); R10.9 Unspecified abdominal pain; R63.0 Anorexia
CPT/HCPCS: 80053; 82150; 83690; 84443; 85025

== ENCOUNTER 2021-08-10 08:17 | Observation (INO) | payer OTHER ==
[~2021-08-10] VITALS: Ht 170.2 cm; Wt 73.9 kg
[2021-08-10 08:59] LABS: BASOPHILS ABSOLUTE AUTO 0.03 K/mm3 (0.00-0.23); BASOPHILS PERCENT AUTO 1 % (0-2); EOSINOPHILS ABSOLUTE AUTO 0.12 K/mm3 (0.00-0.68); EOSINOPHILS PERCENT AUTO 2 % (0-6); Hematocrit 40.1 % (33.0-51.0); Hemoglobin 13.8 g/dL (11.5-16.0); IMMATURE GRAN ABSOLUTE AUTO 0.01 K/mm3 (0.00-0.10); IMMATURE GRAN PERCENT AUTO 0 % (0-1); LYMPHOCYTES ABSOLUTE AUTO 3.61 K/mm3 (0.84-5.20); LYMPHOCYTES PERCENT AUTO 58 % (21-46); MONOCYTES PERCENT AUTO 6 % (4-13); Mean Corpuscular HGB 33.8 pg (26.0-34.0); Mean Corpuscular HGB Conc 34.4 g/dL (31.5-36.5); Mean Corpuscular Volume 98 fL (80-100); Mean Platelet Volume 9.2 fL (9.1-12.4); NEUTROPHILS ABSOLUTE AUTO 2.06 K/mm3 (1.96-9.15); NEUTROPHILS PERCENT AUTO 33 % (41-73); Platelet Count 191 K/mm3 (150-400); RDW Coefficient Variation 13.3 % (11.7-14.2); RDW Standard Deviation 48.3 fL (35.1-46.3); Red Blood Cell Count 4.08 M/mm3 (3.80-5.20); White Blood Cell Count 6.23 K/mm3 (4.00-11.30)
[2021-08-10 09:16] LABS: Alanine Aminotransfer (ALT/SGP 42 U/L (12-78); Albumin, Blood 3.5 g/dL (3.4-5.0); Albumin/Globulin Ratio 0.9 (0.8-1.8); Alk Phos 79 U/L (50-136); Anion Gap 6 mmol/L (6-16); Aspartate Aminotrans (AST/SGOT 31 U/L (12-37); Bilirubin, Total 0.3 mg/dL (0.1-1.0); Blood Urea Nitrogen 26 mg/dL (8-24); Bun/Creatinine Ratio 22.8 (12.0-20.0); CO2, Blood 21 mmol/L (21-32); Calcium, Blood 8.9 mg/dL (8.5-10.1); Chloride, Blood 114 mmol/L (98-108); Creatinine, Blood 1.14 mg/dL (0.40-1.00); Globulin, Blood 3.7 g/dL (2.2-4.0); Glomerular Filtration Rate 49 (60-); Glucose, Blood 153 mg/dL (70-99); Magnesium, Blood 1.8 mg/dL (1.6-2.4); Phosphorus, Blood 4.1 mg/dL (2.5-4.9); Potassium, Blood 4.2 mmol/L (3.5-5.5); Sodium, Blood 141 mmol/L (136-145); Total Protein, Blood 7.2 g/dL (6.4-8.2); Troponin I <0.015 ng/mL (0.000-0.040)
[2021-08-10 10:45] LABS: Source, Urine Clean Catch
[2021-08-10 10:49] LABS: Appearance, Urine Clear (Clear); Bilirubin, Urine Neg (Neg); Blood, Urine Neg (Neg); Color, Urine Yellow (P-Yellow); Glucose Qualitative, Urine Neg (Neg); Ketones, Urine Neg (Neg); Leukocyte Esterase, Urine Neg (Neg); Nitrite, Urine Neg (Neg); Protein, Urine Neg (Neg); Urobilinogen, Urine NORM (Normal)
[2021-08-10 11:54] LABS: U Benzodiazapine Screen DETECTED
[2021-08-10 11:55] LABS: U Amphetamine Screen Not Detected; U Barbituate Screen Not Detected; U Buprenorphine Screen Not Detected; U Cannabinoids Screen Not Detected; U Cocaine Screen Not Detected; U Methadone Screen Not Detected; U Methamphetamine Screen Not Detected; U Opiates Screen Not Detected; U Oxycodone Screen Not Detected; U Phencyclidine Screen Not Detected; U Propoxyphene Screen Not Detected
[2021-08-10 13:26] LABS: Lithium <0.20 mmol/L (0.60-1.20)
[2021-08-10 17:06] LABS: Influenza A, PCR NEGATIVE (NEGATIVE); Influenza B, PCR NEGATIVE (NEGATIVE); Resp Syncytial Virus, PCR NEGATIVE (NEGATIVE); SARS-Cov-2 (COVID-19) PCR, MMC NEGATIVE (NEGATIVE)
== END 2021-08-12 14:09 | disposition home or self-care (01) ==
LOC: ER 08:17 → EOR 08:18
PROVIDERS: Physician Assistant; ADMIT Emergency Medicine
DX: F31.5 Bipolar disorder, current episode depressed, severe, with psychotic features (principal); G92.9 Unspecified toxic encephalopathy; E03.9 Hypothyroidism, unspecified; F17.210 Nicotine dependence, cigarettes, uncomplicated; Z88.0 Allergy status to penicillin; Z88.5 Allergy status to narcotic agent; Z88.8 Allergy status to other drugs, medicaments and biological substances; Z79.899 Other long term (current) drug therapy; Z20.822 Contact with and (suspected) exposure to COVID-19
CPT/HCPCS: 0241U; 36415; 70450; 80053; 80178; 81003; 82140; 83690; 83735; 84100; 84484; 85025; 99285-25; A9270; G0378; G0480; J7030; Q3014

== ENCOUNTER → 2021-12-12 | Outpatient (CLI) | payer OTHER ==
[2021-12-12 20:22] LABS: Bun/Creatinine Ratio 17.3 (12.0-20.0); Calcium, Blood 9.8 mg/dL (8.5-10.1); Creatinine, Blood 1.39 mg/dL (0.40-1.00); Potassium, Blood 3.9 mmol/L (3.5-5.5)
== END | disposition home or self-care (01) ==
LOC: LAB 19:03 → LAB SHORT 19:03
PROVIDERS: Internal Medicine
DX: B18.2 Chronic viral hepatitis C (principal)
CPT/HCPCS: 80048

== ENCOUNTER → 2023-07-05 | Outpatient (CLI) | payer OTHER ==
[2023-07-05 18:48] LABS: Hematocrit 42.3 % (33.0-51.0); Hemoglobin 14.5 g/dL (11.5-16.0); Mean Corpuscular HGB 34.3 pg (26.0-34.0); Mean Corpuscular HGB Conc 34.3 g/dL (31.5-36.5); Mean Corpuscular Volume 100 fL (80-100); Mean Platelet Volume 10.1 fL (9.1-12.4); Platelet Count 149 K/mm3 (150-400); RDW Coefficient Variation 12.4 % (11.7-14.2); RDW Standard Deviation 45.6 fL (35.1-46.3); Red Blood Cell Count 4.23 M/mm3 (3.80-5.20)
[2023-07-05 19:34] LABS: BASOPHILS PERCENT MAN 0 % (0-2); EOSINOPHILS PERCENT MAN 0 % (0-6); LYMPHOCYTES % ATYPICAL MANUAL 1 % (0-0); LYMPHOCYTES ABSOLUTE MAN 5.49 K/mm3 (0.84-5.20); LYMPHOCYTES PERCENT MAN 66 % (21-46); MONOCYTES ABSOLUTE MAN 0.65 K/mm3 (0.16-1.47); MONOCYTES PERCENT MAN 8 % (4-13); NEUTROPHILS ABSOLUTE MAN 2.05 K/mm3 (1.96-9.15); SEG NEUTROPHILS PERCENT MAN 25 % (41-73); TOTAL CELLS COUNTED 100
[2023-07-05 20:11] LABS: Alanine Aminotransfer (ALT/SGP 32 U/L (12-78); Albumin, Blood 4.1 g/dL (3.4-5.0); Albumin/Globulin Ratio 1.1 (0.8-1.8); Alk Phos 82 U/L (50-136); Anion Gap 5 mmol/L (6-16); Aspartate Aminotrans (AST/SGOT 20 U/L (12-37); Bilirubin, Total 0.4 mg/dL (0.1-1.0); Blood Urea Nitrogen 36 mg/dL (8-24); Bun/Creatinine Ratio 22.8 (12.0-20.0); CHOL/HDL RATIO 4.3; CO2, Blood 23 mmol/L (21-32); Calcium, Blood 9.6 mg/dL (8.5-10.1); Chloride, Blood 115 mmol/L (98-108); Cholesterol 167 mg/dL (50-200); Creatinine, Blood 1.58 mg/dL (0.40-1.00); Globulin, Blood 3.8 g/dL (2.2-4.0); Glomerular Filtration Rate 37 (60-); Glucose, Blood 119 mg/dL (70-99); HDL Cholesterol 39 mg/dL (>39); Low Density Lipoprotein Chol 76 mg/dL (0-110); Sodium, Blood 143 mmol/L (136-145); Total Protein, Blood 7.9 g/dL (6.4-8.2); Triglycerides 259 mg/dL (30-160); Very Low Density Lipoprot Chol 51 mg/dL (6-32)
== END | disposition home or self-care (01) ==
LOC: LAB 18:06 → LAB SHORT 18:06
PROVIDERS: Nurse Practitioner Family
DX: B18.2 Chronic viral hepatitis C (principal); E78.5 Hyperlipidemia, unspecified
CPT/HCPCS: 80053; 80061; 85025

== ENCOUNTER → 2023-11-05 | Outpatient (CLI) | payer OTHER ==
[2023-11-05 14:50] LABS: BASOPHILS ABSOLUTE AUTO 0.02 K/mm3 (0.00-0.23); BASOPHILS PERCENT AUTO 0 % (0-2); EOSINOPHILS ABSOLUTE AUTO 0.05 K/mm3 (0.00-0.68); EOSINOPHILS PERCENT AUTO 1 % (0-6); Hematocrit 39.5 % (33.0-51.0); Hemoglobin 13.2 g/dL (11.5-16.0); IMMATURE GRAN ABSOLUTE AUTO 0.02 K/mm3 (0.00-0.10); IMMATURE GRAN PERCENT AUTO 0 % (0-1); LYMPHOCYTES ABSOLUTE AUTO 3.84 K/mm3 (0.84-5.20); LYMPHOCYTES PERCENT AUTO 65 % (21-46); MONOCYTES ABSOLUTE AUTO 0.29 K/mm3 (0.16-1.47); MONOCYTES PERCENT AUTO 5 % (4-13); Mean Corpuscular HGB 34.2 pg (26.0-34.0); Mean Corpuscular HGB Conc 33.4 g/dL (31.5-36.5); Mean Corpuscular Volume 102 fL (80-100); Mean Platelet Volume 9.9 fL (9.1-12.4); NEUTROPHILS ABSOLUTE AUTO 1.69 K/mm3 (1.96-9.15); NEUTROPHILS PERCENT AUTO 29 % (41-73); Platelet Count 136 K/mm3 (150-400); RDW Coefficient Variation 12.8 % (11.7-14.2); RDW Standard Deviation 47.9 fL (35.1-46.3); Red Blood Cell Count 3.86 M/mm3 (3.80-5.20); White Blood Cell Count 5.91 K/mm3 (4.00-11.30)
[2023-11-06 15:11] LABS: A/G RATIO 1.8 (1.2-2.2); BILIRUBIN, TOTAL 0.3 mg/dL (0.0-1.2); CALCIUM, SERUM 9.2 mg/dL (8.7-10.3); CREATININE, SERUM 1.56 mg/dL (0.57-1.00); GLOBULIN, TOTAL 2.4 g/dL (1.5-4.5); POTASSIUM, SERUM 4.6 mmol/L (3.5-5.2); PROTEIN, TOTAL, SERUM 6.8 g/dL (6.0-8.5)
== END | disposition home or self-care (01) ==
LOC: LAB SHORT 13:47 → LAB 13:47
PROVIDERS: Nurse Practitioner Family
DX: E03.9 Hypothyroidism, unspecified (principal); R73.03 Prediabetes
CPT/HCPCS: 80053; 83036; 84443; 85025

== ENCOUNTER → 2025-09-21 | Outpatient (CLI) | payer OTHER ==
[2025-09-21 19:22] LABS: BASOPHILS ABSOLUTE AUTO 0.02 K/mm3 (0.00-0.23); BASOPHILS PERCENT AUTO 1 % (0-2); EOSINOPHILS ABSOLUTE AUTO 0.03 K/mm3 (0.00-0.68); EOSINOPHILS PERCENT AUTO 1 % (0-6); Hematocrit 39.7 % (33.0-51.0); Hemoglobin 13.7 g/dL (11.5-16.0); IMMATURE GRAN ABSOLUTE AUTO 0.00 K/mm3 (0.00-0.10); IMMATURE GRAN PERCENT AUTO 0 % (0-1); LYMPHOCYTES ABSOLUTE AUTO 2.64 K/mm3 (0.84-5.20); LYMPHOCYTES PERCENT AUTO 61 % (21-46); MONOCYTES ABSOLUTE AUTO 0.22 K/mm3 (0.16-1.47); MONOCYTES PERCENT AUTO 5 % (4-13); Mean Corpuscular HGB Conc 34.5 g/dL (31.5-36.5); Mean Corpuscular Volume 101 fL (80-100); NEUTROPHILS ABSOLUTE AUTO 1.40 K/mm3 (1.96-9.15); NEUTROPHILS PERCENT AUTO 32 % (41-73); NRBC ABSOLUTE 0.00 K/mm3 (0.00-0.02); NRBC Auto 0.0 /100 WBC (0.0-0.2); Platelet Count 103 K/mm3 (150-400); RDW Coefficient Variation 12.8 % (11.7-14.2); RDW Standard Deviation 47.8 fL (35.1-46.3)
[2025-09-21 19:30] LABS: Anion Gap 8.0 mmol/L (3-11); Blood Urea Nitrogen 26.0 mg/dL (8-24); CO2, Blood 24.0 mmol/L (21-32); Calcium, Blood 9.1 mg/dL (8.5-10.1); Chloride, Blood 114.0 mmol/L (98-108); Creatinine, Blood 1.38 mg/dL (0.40-1.00); Glucose, Blood 113.0 mg/dL (70-99); Potassium, Blood 3.9 mmol/L (3.5-5.5); Sodium, Blood 142.0 mmol/L (136-145)
== END ==
LOC: LAB SHORT 18:45 → LAB 18:45
PROVIDERS: Nurse Practitioner Family
DX: N18.30 Chronic kidney disease, stage 3 unspecified (principal); E55.9 Vitamin D deficiency, unspecified
CPT/HCPCS: 80048; 82306; 85025